=== PATIENT | male | born 1965 | race Caucasian/White ===

== ENCOUNTER 2020-09-12 09:28 | Outpatient (REF) | payer BC, SELFPAY | END 2020-09-12 09:29 | disposition home or self-care (01) | LOC: HO.LAB 09:28 | PROVIDERS: Visit Provider Internal Medicine | DX: Z20.828 Contact with and (suspected) exposure to other viral communicable diseases (principal) | CPT/HCPCS: U0003 ==

== ENCOUNTER 2023-02-25 06:04 | Outpatient (REF) | payer BC, SELFPAY ==
[2023-02-25 11:04] LABS: Appearance Urine Clear; Color Urine Yellow; Glucose Urine UA Negative (Negative); Leukocyte Esterase Urine Negative (Negative); Nitrite Urine Negative (Negative); Urine Blood Negative (Negative); Urine Ketones Negative (Negative); Urine Protein Negative (Neg-Trace)
[2023-02-25 11:07] LABS: MANUAL DIFF FLAG NO
[2023-02-25 11:41] LABS: Basophils Percent Auto 0.3 % (0-2); Eosinophils Absolute Auto 0.2 X10*3/uL (0.0-0.4); Eosinophils Percent Auto 1.5 % (0-4); Hematocrit 44.7 % (42.0-52.0); Hemoglobin 15.1 g/dl (14.0-18.0); Imm Gran Abs Auto 0.04 X10*3/uL (0.00-0.03); Imm Gran Pct Auto 0.4 % (0.0-0.4); Lymphocytes Percent Auto 29.5 % (20-40); Mean Corpuscular HGB Conc 33.8 g/dl (31.0-36.0); Mean Corpuscular Hemoglobin 32.5 pg (27.0-33.0); Mean Corpuscular Volume 96.1 fL (80.0-98.0); Mean Platelet Volume 9.9 fL (9.4-12.4); Monocytes Absolute Auto 0.8 X10*3/uL (0.1-1.2); Monocytes Percent Auto 7.6 % (2-11); Neutrophils Absolute Auto 6.2 x10*3/uL (2.0-8.3); Neutrophils Percent Auto 60.7 % (45-73); Platelet Count 282 X10*3/uL (160-400); Red Blood Count 4.65 X10*6/uL (4.60-5.80); Red Cell Distribution Width 12.1 % (11.0-16.0); White Blood Count 10.2 X10*3/uL (4.8-10.8)
[2023-02-25 11:57] LABS: Alanine Aminotransferase 27 U/L (0-40); Albumin Level 4.5 g/dL (3.5-5.0); Alkaline Phosphatase 72 U/L (39-117); Anion Gap 11 (12-20); Aspartate Amino Transferase 21 U/L (5-37); Bilirubin Total 0.7 mg/dL (0.0-1.0); Blood Urea Nitrogen 14 mg/dL (9-16); Calcium 9.6 mg/dL (8.4-10.2); Carbon Dioxide 28 mmol/L (22-29); Chloride 106 mmol/L (96-108); Cholesterol 122 mg/dL; Estimated Glomerular Filt Rate > 60; Glucose Fasting 162 mg/dL (60-99); HDL Cholesterol 42 mg/dL; LDL Cholesterol Calculated 62 mg/dl; Potassium 4.8 mmol/L (3.3-5.1); Sodium 140 mmol/L (135-145); Total Protein 6.6 g/dL (6.5-8.0); Triglycerides 91 mg/dL
[2023-02-25 12:11] LABS: Estimated Average Glucose 148 mg/dL; Hemoglobin A1c % 6.8 %
[2023-02-25 12:16] LABS: Prostate Specific Antigen Scr 0.14 ng/mL (<0.05-4.0); TSH reflex Free T4 2.47 uIU/mL (0.32-4.0)
[2023-02-25 12:20] LABS: Creatinine Urine 130.56 mg/dL; Microalbum/Creatinine Ratio Ur 7.6 ug/mg cr
== END 2023-02-25 06:05 | disposition home or self-care (01) ==
LOC: HO.HMGCLDS 06:04
PROVIDERS: PCP Nurse Practitioner Family; Visit Provider Nurse Practitioner Family
DX: Z00.00 Encounter for general adult medical examination without abnormal findings (principal); Z12.5 Encounter for screening for malignant neoplasm of prostate; E11.9 Type 2 diabetes mellitus without complications
CPT/HCPCS: 36415; 80053; 80061; 81003; 82043; 83036; 84153; 84443; 85025

== ENCOUNTER 2023-03-17 13:35 | Outpatient (REF) | payer BC, SELFPAY ==
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
== END 2023-03-17 13:36 | disposition home or self-care (01) ==
LOC: HO.HMGCX 13:35
PROVIDERS: PCP Nurse Practitioner Family; Visit Provider Physician Assistant
DX: R07.81 Pleurodynia (principal)
CPT/HCPCS: 71101

== ENCOUNTER 2023-04-25 15:14 | Outpatient (REF) | payer BC, SELFPAY ==
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
== END 2023-04-25 15:15 | disposition home or self-care (01) ==
LOC: HO.CT 15:14
PROVIDERS: PCP Nurse Practitioner Family; Visit Provider Physician Assistant Medical
DX: Z12.2 Encounter for screening for malignant neoplasm of respiratory organs (principal); F17.210 Nicotine dependence, cigarettes, uncomplicated
CPT/HCPCS: 71271; G0296

== ENCOUNTER 2023-05-04 14:51 | Emergency (ER) | payer BC, SELFPAY ==
--- NOTE | ~2023-05-04 | XR_ITS ---
EXAMINATION: XR SHOULDER, LEFT CLINICAL INFORMATION: Decreased range of motion COMPARISON: None available. TECHNIQUE: AP external rotation, Grashey, scapular Y, and axillary views of the left shoulder. FINDINGS: No evidence for an acute fracture or dislocation. There is a foreign body on several films measuring 3 mm. Rounded. Another foreign body overlying C6 and lower cervical region on the right. There is degenerative change at the AC joint and mild acromial spurring. Sclerotic change at the insertion of the superior rotator cuff. There is no acute fracture or dislocation. Mild degenerative change in the inferior glenohumeral articulation. XR/XR shoulder LT min 2V IMPRESSION: Degenerative changes here and findings which may preclude to impingement. Radiopaque foreign bodies are noted.
[2023-05-04 16:55] VITALS: BP 138/87; PULSE 79; RESP 18; TEMP 36.2; O2SAT 98; BMI 30.5
--- NOTE | 2023-05-04 16:55 | ED_ITS ---
HPI - Extremity Problem General Chief complaint: Back Pain/Injury Stated complaint: shoulder and arm pain/numbness Time Seen by Provider: 05/04/23 17:44 History of Present Illness HPI Narrative: patient complains of 2 days of pain radiating from his neck and upper back on left side down his arm with a tingling sensation, there was no injury, there is no loss of sensation there is no muscle weakness, no fever, no rash, no chest pain no shortness of breath, no change to bowel or bladder no dysuria no incontinence no frequency Related Data Previous Rx's Medication Instructions Recorded aspirin 81 mg tablet,delayed 162 mg PO DAILY #90 tabs 02/11/23 release (Adult Aspirin Regimen) atorvastatin 80 mg tablet 80 mg PO DAILY 90 days #90 tabs 02/11/23 lisinopril 2.5 mg tablet 2.5 mg PO DAILY 90 days #90 tabs 02/11/23 metformin 1,000 mg tablet 1,000 mg PO BID 90 days #180 tabs 02/11/23 metoprolol succinate 50 mg 50 mg PO DAILY 90 days #90 tabs 02/11/23 tablet,extended release 24 hr ketorolac 10 mg tablet 10 mg PO Q8H PRN pain #15 tabs 03/17/23 lidocaine 4 % topical patch 1 patch topical DAILY PRN pain #15 03/17/23 (AsperFlex (lidocaine)) ea cyclobenzaprine 5 mg tablet 5 mg PO TID PRN muscle spasm #14 05/04/23 tabs oxycodone 5 mg tablet 5 mg PO Q6H PRN pain #14 tabs 05/04/23 prednisone 20 mg tablet 60 mg PO DAILY 3 days #9 tabs 05/04/23 Allergies Allergy/AdvReac Type Severity Reaction Status Date / Time No Known Allergies Allergy Unverified 03/17/23 12:48 [No Known Allergies*] [facility] Past Medical History Source: nursing notes reviewed Medical History (Updated 05/06/23 @ 18:11 by HAI Cullen) Blindness of left eye (~1999) CAD (coronary artery disease) Diabetes Hyperlipidemia Hypertension Metal foreign body in eye region (~1999) Nicotine dependence, cigarettes, uncomplicated Surgical History (Updated 04/25/23 @ 15:11 by Maria Isabel Wetzel PA-C) History of heart artery stent Family History Family History (Updated 04/21/23 @ 12:26 by Maria Isabel Wetzel PA-C) Father Esophageal cancer Social History Social History (Updated 04/25/23 @ 15:00 by Maria Isabel Wetzel PA-C) Housing: House Patient Tobacco Use Status: Current everyday Tobacco user Cigarette Packs Per Day: 0.75 Cigarettes Per Day: 15 Years Smoked: (current smoker, onset 16yo, 1ppd x 41yrs, 40pyh) e-Cigarette/Vaping Use: Never Used Second Hand Smoke Exposure: Yes Advance Directives: No Advance Directives Information Provided: No service: No Current occupational status: employed Current occupation: [employer] Current occupational exposures/hazards: Yes Cognitive needs: No Hearing needs: No Vision needs: No Physical Exam Vital Signs: Vital Signs: Last Vital Signs Temp 98 F 05/04/23 19:34 Pulse 68 05/04/23 19:34 Resp 16 05/04/23 19:34 BP 130/65 05/04/23 19:34 Pulse Ox 100 05/04/23 19:34 O2 Del Method Room Air 05/04/23 19:34 BMI result Body Mass Index 30.5 general appearance no distress The head is normocephalic atraumatic The neck is supple with no meningismus but there is discomfort on lateral motion, there is tenderness to the left side of the neck the left trapezius as well, skin of the neck and trapezius are normal Chest wall is nontender there is no rash Lungs are clear to auscultation bilateral Heart no murmur Abdomen soft nontender Extremities there is some tenderness over the left shoulder but most of it is left trapezius and left upper back, skin of left subscapular area Pain is easily reproduced with movement, there is no lumbar tenderness no focal bony tenderness no skin changes to the back Extremities the left shoulder had some tenderness and there was pain with movement of the left arm on extension abduction and external rotation, no redness no swelling, neurovascular intact distal with normal pulse distal, 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 Patient is a 57-year-old male presented to emergency department for evaluation of shoulder pain. Awoke yesterday with a knot in my left shoulder . Pain is progressively worsening, radiates to the left lateral neck. Also experiencing numbness to the left hand now. 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 Denies chest pain, shortness of breath, dizziness. lightheadedness. Plan: XR shoulder patient with pain radiating likely from pinched nerve in the neck possibly from the upper back radiating into the left arm with a tingling burning sensation but no muscle weakness, no loss of sensation, he had no injury Pain is easily reproducible with movement and palpation of the neck and upper back He is treated with prednisone analgesics and muscle relaxer and will follow with his doctor Medications Administered Discontinued Medications Generic Name Dose Route Start Last Admin Trade Name Freq PRN Reason Stop Dose Admin Ketorolac Tromethamine 30 mg 05/04/23 19:10 05/04/23 19:29 Ketorolac Tromethamine 30 Mg/Ml Vial IM 05/04/23 19:11 30 mg ONCE ONE Administration Oxycodone HCl 10 mg 05/04/23 19:10 05/04/23 19:29 Oxycodone Hcl Immed Release 5 Mg Tablet PO 05/04/23 19:11 10 mg ONCE ONE Administration Prednisone 60 mg 05/04/23 19:10 05/04/23 19:29 Prednisone 20 Mg Tablet PO 05/04/23 19:11 60 mg ONCE ONE Administration Discharge Plan Discharge Clinical Impression: Cervical radiculopathy Patient Disposition: Home, Self-Care Additional Instructions: you likely have a pinched nerve in your neck or upper back that is shooting pain and tingling down arm Prednisone will sometimes reduce inflammation around the nerve and help this feel better Use pain medicine and muscle relaxer as needed but if you are driving or going to work you cannot take muscle relaxer or oxycodone for 6 hours before going to work increasin Return any time for weakness fever, severe pain, any worse condition or any concern Follow with primary doctor for possible referral to specialist for further evaluation if pain does not resolve Prescriptions: New prednisone 20 mg tablet 60 mg PO DAILY 3 Days Qty: 9 0RF oxycodone 5 mg tablet 5 mg PO Q6H PRN (Reason: pain) Qty: 14 0RF Rx Instructions: Partial Fill upon patient request. cyclobenzaprine 5 mg tablet 5 mg PO TID PRN (Reason: muscle spasm) Qty: 14 0RF No Action lisinopril 2.5 mg tablet 2.5 mg PO DAILY 90 Days Qty: 90 0RF aspirin [Adult Aspirin Regimen] 81 mg tablet,delayed release (DR/EC) 162 mg PO DAILY Qty: 90 0RF atorvastatin 80 mg tablet 80 mg PO DAILY 90 Days Qty: 90 2RF metformin 1,000 mg tablet 1,000 mg PO BID 90 Days Qty: 180 1RF metoprolol succinate 50 mg tablet extended release 24 hr 50 mg PO DAILY 90 Days Qty: 90 1RF lidocaine [AsperFlex (lidocaine)] 4 % adhesive patch,medicated 1 patch topical DAILY PRN (Reason: pain) Qty: 15 0RF ketorolac 10 mg tablet 10 mg PO Q8H PRN (Reason: pain) Qty: 15 0RF Interventions: ED Discharge Assessment Last Done: 05/04/23 19:38 Discharge Date/Time: 05/04/23 19:38
[2023-05-04] MEDS: Ketorolac Tromethamine 30 MG/ML VIAL IM (19:29)
[2023-05-04] MEDS: predniSONE 20 MG TABLET 60 MG PO (19:29)
[2023-05-04] MEDS: oxyCODONE HCl Immed Release 5 MG TABLET 10 MG PO (19:29)
[2023-05-04 19:34] VITALS: BP 130/65; PULSE 68; RESP 16; TEMP 36.6; O2SAT 100
--- NOTE | 2023-05-04 19:36 | PC.NURSE ---
aox4. calm, coop. vss for pt. no respiratory distress. reports continued left arm/elbow pain with continued mild to moderate numbness/tingling to left arm. positive motion/circulation. denies neck pain at this time. rx for toradol im- tolerated well- skin cdi. po pain med and steroid given. walked well w to [facility]- pt not driving home, family driving him
== END 2023-05-04 19:38 | disposition home or self-care (01) ==
PROVIDERS: Emergency Provider Internal Medicine; PCP Nurse Practitioner Family
DX: M54.12 Radiculopathy, cervical region (principal); M54.2 Cervicalgia; M54.50 Low back pain, unspecified; M25.512 Pain in left shoulder; F17.210 Nicotine dependence, cigarettes, uncomplicated; Z71.6 Tobacco abuse counseling; Z79.899 Other long term (current) drug therapy
CPT/HCPCS: 73030; 96372; 99284; J1885

== ENCOUNTER 2023-05-14 15:51 | Outpatient (REF) | payer BC, SELFPAY ==
--- NOTE | ~2023-05-14 | XR_ITS ---
EXAMINATION: XR CERVICAL SPINE CLINICAL INFORMATION: Cervical disc disorder COMPARISON: None available. TECHNIQUE: 3 views of the cervical spine were obtained. FINDINGS: The craniocervical junction is normal. The dens is intact. The cervical vertebra have well preserved height and alignment. No vertebral compression fracture or prevertebral soft tissue swelling. There is anterior vertebral osteophyte formation at C5-C6, C6-C7 and C7-T1. The disc space is preserved at C5-C6. There is moderate narrowing of disc space at C6-C7 and C7-T1. There appears to be mild facet arthropathy of C5-C6 and moderate facet arthropathy at C7-T1. Lung apices are normal. Several metallic BBs project over the soft tissues of the face and neck. XR/XR cervical spine 3V IMPRESSION: * There appears to be facet arthropathy as well as moderate discovertebral degenerative change of C5-C6 and C6-C7. * The alignment of the cervical vertebra is maintained. No acute fracture or soft tissue swelling.
== END 2023-05-14 15:52 | disposition home or self-care (01) ==
LOC: HO.HMGCX 15:51
PROVIDERS: PCP Nurse Practitioner Family; Visit Provider Nurse Practitioner Family
DX: M50.90 Cervical disc disorder, unspecified, unspecified cervical region (principal)
CPT/HCPCS: 72040

== ENCOUNTER 2023-05-20 13:54 | Outpatient (AMB) | payer BC, SELFPAY ==
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
[2023-05-20 14:10] VITALS: BP 113/61; PULSE 97; BMI 30.2
== END 2023-05-20 14:33 | disposition home or self-care (01) ==
PROVIDERS: PCP Nurse Practitioner Family; Visit Provider Nurse Practitioner Family
DX: Z01.818 Encounter for other preprocedural examination (principal); Z12.11 Encounter for screening for malignant neoplasm of colon
CPT/HCPCS: S0285

== ENCOUNTER → 2023-05-20 13:54 | Outpatient (BNVA) | payer BC, SELFPAY | PROVIDERS: PCP Nurse Practitioner Family; Visit Provider Nurse Practitioner Family ==

== ENCOUNTER 2023-06-18 07:36 | Outpatient (REF) | payer BC, SELFPAY ==
--- NOTE | ~2023-06-18 | CT_ITS ---
EXAMINATION: CT CERVICAL SPINE WITHOUT CONTRAST CLINICAL INFORMATION: Abnormal findings on diagnostic imaging. COMPARISON: None TECHNIQUE: CT of the cervical spine was performed without contrast. Multiplanar reformats were rendered and reviewed. This CT examination was performed using dose optimization techniques as appropriate, variously including the following: *Automated exposure control *Adjustment of mA and/or kV according to patient size (this includes techniques or standardized protocols for targeted exams where dose is matched to indication/reason for exam; i.e. extremities or head) *Use of iterative reconstruction technique DLP: 497 mGy-cm FINDINGS: The cervical vertebral bodies maintain normal heights and alignment. There is advanced disc height loss at C6-C7 and C7-T1. Prominent anterior endplate osteophytes are seen from C5 to T1. No fracture is seen. Imaged intracranial contents are unremarkable. There are bilateral palatine tonsilloliths. Atheromatous calcifications are seen at the carotid bifurcations. The lung apices are clear. Numerous BBs are seen within the chest and neck soft tissues. SPINAL LEVELS: C2-C3: No posterior disc abnormality. No spinal canal or neural foraminal stenosis. C3-C4: Mild disc bulging. No spinal canal stenosis. Mild right uncovertebral hypertrophy resulting in mild right neural foraminal stenosis. C4-C5: No posterior disc abnormality. No spinal canal or neural foraminal stenosis. C5-C6: Disc bulging with uncovertebral hypertrophy resulting in mild to moderate left neural foraminal stenosis. No spinal canal stenosis. C6-C7: Disc osteophyte complex with uncovertebral hypertrophy resulting in moderate bilateral neural foraminal stenosis. Mild spinal canal stenosis. Ossification of posterior longitudinal ligament seen along the posterior aspect of C6. C7-T1: Disc osteophyte complex with uncovertebral hypertrophy and mild facet arthropathy. No spinal canal stenosis. Mild bilateral neural foraminal stenosis. Ossification of posterior longitudinal ligament seen along the posterior aspect of C7. CT/CT cervical spine wo IV con IMPRESSION: Multilevel degenerative spondylotic changes without significant narrowing of the spinal canal. Neural foraminal stenosis appears moderate bilaterally at C6-C7 and mild to moderate on the left at C5-C6.
== END 2023-06-18 07:37 | disposition home or self-care (01) ==
LOC: HO.CT 07:36
PROVIDERS: Visit Provider Nurse Practitioner Family
DX: M50.90 Cervical disc disorder, unspecified, unspecified cervical region (principal); R93.7 Abnormal findings on diagnostic imaging of other parts of musculoskeletal system
CPT/HCPCS: 72125

== ENCOUNTER 2023-06-26 08:40 | Outpatient (REF) | payer BC, SELFPAY ==
--- NOTE | 2023-06-26 08:44 | EMG_ITS ---
Left median and ulnar motor and sensory studies were performed. Left radial sensory study was performed. Median and lateral antecubital sensory studies were performed and paraspinal muscles were tested with a needle. IMPRESSION: 1. [id number] left median neuropathy across carpal tunnel. 2. [id number] left ulnar neuropathy across cubital tunnel. MD MAYNOR Reynolds/ANDREW / [id number]
== END 2023-06-26 08:41 | disposition home or self-care (01) ==
LOC: HO.NEURO 08:40
PROVIDERS: PCP Nurse Practitioner Family; Visit Provider Nurse Practitioner Family
DX: R20.0 Anesthesia of skin (principal)
CPT/HCPCS: 95860; 95886; 95907; 95910

== ENCOUNTER 2023-08-11 06:04 | Outpatient (REF) | payer BC, SELFPAY ==
[2023-08-11 11:18] LABS: MANUAL DIFF FLAG NO
[2023-08-11 11:51] LABS: Basophils Percent Auto 0.2 % (0-2); Eosinophils Absolute Auto 0.1 X10*3/uL (0.0-0.4); Eosinophils Percent Auto 1.3 % (0-4); Hematocrit 46.9 % (42.0-52.0); Hemoglobin 15.7 g/dl (14.0-18.0); Imm Gran Abs Auto 0.03 X10*3/uL (0.00-0.03); Imm Gran Pct Auto 0.3 % (0.0-0.4); Lymphocytes Percent Auto 26.8 % (20-40); Mean Corpuscular HGB Conc 33.5 g/dl (31.0-36.0); Mean Corpuscular Volume 95.5 fL (80.0-98.0); Mean Platelet Volume 9.6 fL (9.4-12.4); Monocytes Absolute Auto 0.8 X10*3/uL (0.1-1.2); Monocytes Percent Auto 6.9 % (2-11); Neutrophils Absolute Auto 7.2 x10*3/uL (2.0-8.3); Neutrophils Percent Auto 64.5 % (45-73); Platelet Count 271 X10*3/uL (160-400); Red Blood Count 4.91 X10*6/uL (4.60-5.80); Red Cell Distribution Width 12.2 % (11.0-16.0); White Blood Count 11.2 X10*3/uL (4.8-10.8)
[2023-08-11 12:18] LABS: Alanine Aminotransferase 29 U/L (0-40); Albumin Level 4.4 g/dL (3.5-5.0); Alkaline Phosphatase 71 U/L (39-117); Anion Gap 14 (12-20); Aspartate Amino Transferase 27 U/L (5-37); Bilirubin Total 0.6 mg/dL (0.0-1.0); Blood Urea Nitrogen 12 mg/dL (9-16); Calcium 9.5 mg/dL (8.4-10.2); Carbon Dioxide 23 mmol/L (22-29); Chloride 106 mmol/L (96-108); Cholesterol 123 mg/dL (<200); Estimated Glomerular Filt Rate > 60; Glucose Fasting 164 mg/dL (60-99); HDL Cholesterol 51 mg/dL (>40); LDL Cholesterol Calculated 56 mg/dL (<100); Potassium 3.8 mmol/L (3.3-5.1); Sodium 139 mmol/L (135-145); Total Protein 6.9 g/dL (6.5-8.0); Triglycerides 81 mg/dL (<150)
== END 2023-08-11 06:05 | disposition home or self-care (01) ==
LOC: HO.HMGCLDS 06:04
PROVIDERS: PCP Nurse Practitioner Family; Visit Provider Nurse Practitioner Family
DX: E11.9 Type 2 diabetes mellitus without complications (principal)
CPT/HCPCS: 36415; 80053; 80061; 85025

== ENCOUNTER 2023-08-12 15:38 | Outpatient (AMB) | payer BC, SELFPAY ==
--- NOTE | 2023-08-12 15:43 | MHC.PC.OV ---
Vital Signs 08/12/23 15:44 Height 5 ft 7 in Weight 188 lb 6 oz BMI 29.5 BP 110/70 Blood Pressure Location Rt brachial Position Sitting Pulse 88 Pulse Source Pulse Oximeter Pulse Oximetry (%) 96 Oxygen Delivery Method Room Air Intake Visit Reasons: 3m follow up Allergies No Known Allergies [No Known Allergies*] Allergy (Verified 08/12/23 18:01) Medication List - Last Reconciled 08/12/23 by AD Cullen aspirin (Adult Aspirin Regimen) 162 mg (2 x 81 mg) PO DAILY atorvastatin 80 mg PO DAILY 90 days bisacodyl (Dulcolax (bisacodyl)) 10 mg (2 x 5 mg) PO ONCE 1 day blood sugar diagnostic (Freestyle [employer] Test Strips) TID testing empagliflozin (Jardiance) 10 mg PO DAILY lancets (FreeStyle Lancets) TID testing lisinopril 2.5 mg PO DAILY 90 days metformin 1,000 mg PO BID 90 days metoprolol succinate ER 50 mg PO DAILY 90 days polyethylene glycol 3350 (Miralax) 238 grams PO ONCE Tobacco use date assessed: 08/12/23 HPI 3m follow up HPI Details Pt is a diabetic, on an CONSTANZA and a statin. A1C in office today is 7.0. Microalbumin is up to date. Denies polyuria, polydipsia, and neuropathy. Pt denies any signs and symptoms of hypoglycemia and does know how to correct it. Will increase jardiance from 10mg to 25mg. Leukocytosis noted on last labs. Pt denies any signs of infection. Will repeat CBC. Will refer to podiatry due to onychomycosis. [facility] Medical History (Updated 08/12/23 @ 18:03 by AD Cullen) Blindness of left eye (~1999) Hyperlipidemia Hypertension Metal foreign body in eye region (~1999) CAD (coronary artery disease) Nicotine dependence, cigarettes, uncomplicated Diabetes Surgical History History of heart artery stent Family History Father Esophageal cancer Social History Housing: House Patient Tobacco Use Status: Current everyday Tobacco user Cigarette Packs Per Day: 0.75 Cigarettes Per Day: 15 Years Smoked: (current smoker, onset 16yo, 1ppd x 41yrs, 40pyh) e-Cigarette/Vaping Use: Never Used Second Hand Smoke Exposure: Yes service: No Current occupational status: employed Current occupation: [employer] Current occupational exposures/hazards: Yes Cognitive needs: No Hearing needs: No Vision needs: No Questionnaire Thrive Questionnaire Date Thrive assessed: 02/11/23 SUMAYA-7 AMB Questionnaire SUMAYA-7 Date SUMAYA - 7 assessed: 02/11/23 Source: Developed by Drs. Derick Nicole, Jessica Jacques, Monroe Fleming and colleagues, with an educational renae from [employer]. Review of Systems Const Reports as per HPI Physical exam (Primary Care) Vital Signs: Last Vital Signs Pulse 88 08/12/23 15:44 BP 110/70 08/12/23 15:44 Pulse Ox 96 08/12/23 15:44 Oxygen Delivery Method Room Air 08/12/23 15:44 BMI result Body Mass Index 29.5 Tobacco/Smoking Status: Tobacco use Status Tobacco use date assessed 08/12/23 08/12/23 15:47 Patient Tobacco Use Status Current everyday Tobacco 08/12/23 15:47 e-Cigarette/Vaping Use Never Used 08/12/23 15:47 Thrive Assessment: Date of Thrive Assessment Date Thrive assessed 02/11/23 08/12/23 15:47 Const General: cooperative Orientation/consciousness: patient oriented x3 Resp Effort & Inspection: normal respiratory effort Auscultation: clear to auscultation bilaterally Cardio Rate: regular rate Rhythm: regular rhythm Heart sounds: S1 normal heart sound present, S2 normal heart sound present and no murmurs Neuro General: patient oriented x3 Extrem Other: bilat feet: + sensation with use of monofilament, onychomycosis noted bilat, right big toenail is worse, lifting off nail bed Psych Appearance: grossly normal Mental Status: mental status grossly normal Speech and movement: Normal speech and movement present Affect: normal affect Attitude: cooperative Thought process: Normal thought process present Thought content: Normal thought content present Insight: Good insight present (Psych) Judgement: Good judgement present (Psych) Results AMB Hemoglobin A1c AMB Hemoglobin A1c 7.0 % Last Edit by Julianne Reyna CMA on 08/12/23 16:17 Results Reviewed Results Reviewed: Laboratory Last Values Hgb A1c (Clinic) 7.0 % (4.0-6.0) H 08/12/23 16:15 Assessment and Plan Assessment & Plan (1) Leukocytosis: Code(s): D72.829 - Elevated white blood cell count, unspecified Plan: CBC ordered (2) Onychomycosis: Code(s): B35.1 - Tinea unguium Plan: Referred to podiatry (3) Diabetes: Code(s): E11.9 - Type 2 diabetes mellitus without complications Plan: increased jardiance Plan The patient agreed to the use of a pediatrician/medical doctor for this encounter. Scribed for AD Peterson by Michell Saenz pediatrician/medical doctor, on 08/12/2023 at 15:50 EST Orders: Orders Complete Blood Count Auto Diff Today D72.829 - Elevated white blood cell count, unspecified AMB Hemoglobin A1c Today E11.9 - Type 2 diabetes mellitus without complications Referrals Podiatry Referral B35.1 - Tinea unguium Medications: Changed From empagliflozin (Jardiance) 10 mg PO DAILY 30 tabs 4RF To empagliflozin 25 mg PO DAILY 90 tabs 4RF 90 days Coding Level of Care Code Est Pt Level 3 (00358) Diagnoses Leukocytosis D72.829 Onychomycosis B35.1 Diabetes E11.9
[2023-08-12 15:44] VITALS: BP 110/70; PULSE 88; O2SAT 96; BMI 29.5
== END 2023-08-12 16:46 | disposition home or self-care (01) ==
PROVIDERS: PCP Nurse Practitioner Family; Visit Provider Nurse Practitioner Family
DX: D72.829 Elevated white blood cell count, unspecified (principal); B35.1 Tinea unguium; E11.9 Type 2 diabetes mellitus without complications
CPT/HCPCS: 83036; 99213

== ENCOUNTER 2023-08-14 06:02 | Outpatient (REF) | payer BC, SELFPAY ==
[2023-08-14 11:00] LABS: MANUAL DIFF FLAG NO
[2023-08-14 11:14] LABS: Basophils Percent Auto 0.2 % (0-2); Eosinophils Absolute Auto 0.1 X10*3/uL (0.0-0.4); Hematocrit 46.4 % (42.0-52.0); Hemoglobin 15.2 g/dl (14.0-18.0); Imm Gran Abs Auto 0.02 X10*3/uL (0.00-0.03); Imm Gran Pct Auto 0.2 % (0.0-0.4); Lymphocytes Absolute Auto 2.7 X10*3/uL (1.2-4.9); Lymphocytes Percent Auto 26.1 % (20-40); Mean Corpuscular HGB Conc 32.8 g/dl (31.0-36.0); Mean Corpuscular Hemoglobin 31.6 pg (27.0-33.0); Mean Corpuscular Volume 96.5 fL (80.0-98.0); Monocytes Absolute Auto 0.8 X10*3/uL (0.1-1.2); Monocytes Percent Auto 7.3 % (2-11); Neutrophils Absolute Auto 6.8 x10*3/uL (2.0-8.3); Neutrophils Percent Auto 65.2 % (45-73); Platelet Count 270 X10*3/uL (160-400); Red Blood Count 4.81 X10*6/uL (4.60-5.80); Red Cell Distribution Width 12.2 % (11.0-16.0); White Blood Count 10.5 X10*3/uL (4.8-10.8)
== END 2023-08-14 06:03 | disposition home or self-care (01) ==
LOC: HO.HMGCLDS 06:02
PROVIDERS: PCP Nurse Practitioner Family; Visit Provider Nurse Practitioner Family
DX: D72.829 Elevated white blood cell count, unspecified (principal)
CPT/HCPCS: 36415; 85025

== ENCOUNTER 2023-11-24 14:50 | Outpatient (AMB) | payer BC, SELFPAY ==
--- NOTE | 2023-11-24 14:59 | MHC.PC.OV ---
Vital Signs 11/24/23 15:02 Weight 193 lb 6 oz BP 118/80 Blood Pressure Location Rt brachial Position Sitting Pulse 88 Pulse Source Pulse Oximeter Pulse Oximetry (%) 97 Oxygen Delivery Method Room Air Intake Visit Reasons: Diabetes 3m Follow up Intake Note: Patient here for diabetes F/U. Pt states sugars have been good. Allergies No Known Allergies [No Known Allergies*] Allergy (Verified 11/24/23 15:03) Medication List - Last Reconciled 11/24/23 by AD Cullen aspirin (Adult Aspirin Regimen) 162 mg (2 x 81 mg) PO DAILY atorvastatin 80 mg PO DAILY 90 days bisacodyl (Dulcolax (bisacodyl)) 10 mg (2 x 5 mg) PO ONCE 1 day blood sugar diagnostic (Freestyle [employer] Test Strips) TID testing empagliflozin 25 mg PO DAILY 90 days lancets (FreeStyle Lancets) TID testing lisinopril 2.5 mg PO DAILY 90 days metformin 1,000 mg PO BID 90 days metoprolol succinate ER 50 mg PO DAILY 90 days polyethylene glycol 3350 (Miralax) 238 grams PO ONCE Tobacco use date assessed: 11/24/23 Dental Screening Dental Screen Date: 11/24/23 Was dental information given to patient?: Patient declined HPI Diabetes 3m Follow up HPI Details Pt is a diabetic, on an CONSTANZA and a statin. A1C in office today is 6.6. Microalbumin is up to date. Denies polyuria, polydipsia, and neuropathy. Pt denies any signs and symptoms of hypoglycemia and does know how to correct it. Pt check his blood sugar twice a day and reports that it is well-controlled. Pt reports he has a eye exam in the near future. [facility] Medical History Blindness of left eye (~1999) Hyperlipidemia Hypertension Metal foreign body in eye region (~1999) CAD (coronary artery disease) Nicotine dependence, cigarettes, uncomplicated Diabetes Surgical History History of heart artery stent Family History Father Esophageal cancer Social History (Reviewed 01/15/24 @ 15:20 by Richard Campuzano [facility]) Housing: House Patient Tobacco Use Status: Current everyday Tobacco user Cigarette Packs Per Day: 0.75 Cigarettes Per Day: 15 Years Smoked: (current smoker, onset 16yo, 1ppd x 41yrs, 40pyh) e-Cigarette/Vaping Use: Never Used Second Hand Smoke Exposure: Yes service: No Current occupational status: employed Current occupation: [employer] Current occupational exposures/hazards: Yes Cognitive needs: No Hearing needs: No Vision needs: No Questionnaire Thrive Questionnaire Date Thrive assessed: 02/11/23 AUDIT C Alcohol Use Questionnaire (AUDIT-C) 1. How often do you have a drink containing alcohol?: 2-4 times a month 2. How many drinks containing alcohol do you have on a typical day when you are drinking?: 3 or 4 3. How often do you have six or more drinks on one occasion?: Less than monthly Total Score: 4 SUMAYA-7 AMB Questionnaire SUMAYA-7 Date SUMAYA - 7 assessed: 02/11/23 Source: Developed by Drs. Derick Nicole, Jessica Jacques, Monroe Fleming and colleagues, with an educational renae from [employer]. Review of Systems Const Reports as per HPI Physical exam (Primary Care) Vital Signs: Last Vital Signs Pulse 88 11/24/23 15:02 BP 118/80 11/24/23 15:02 Pulse Ox 97 11/24/23 15:02 Oxygen Delivery Method Room Air 11/24/23 15:02 Tobacco/Smoking Status: Tobacco use Status Tobacco use date assessed 11/24/23 11/24/23 15:09 Patient Tobacco Use Status Current everyday Tobacco 11/24/23 15:01 e-Cigarette/Vaping Use Never Used 11/24/23 15:01 Thrive Assessment: Date of Thrive Assessment Date Thrive assessed 02/11/23 11/24/23 15:01 Const General: cooperative Orientation/consciousness: patient oriented x3 Chest Chest palpation & inspection: normal inspection of the chest Resp Effort & Inspection: normal respiratory effort Auscultation: clear to auscultation bilaterally Cardio Palpation: normal PMI Rate: regular rate Rhythm: regular rhythm Heart sounds: S1 normal heart sound present and S2 normal heart sound present Neuro General: patient oriented x3 Extrem Other: bilat feet: + sensation with use of monofilament, onychomycosis noted to bilat toenails Psych Appearance: grossly normal Mental Status: mental status grossly normal Speech and movement: Normal speech and movement present Affect: normal affect Attitude: cooperative Thought process: Normal thought process present Thought content: Normal thought content present Insight: Good insight present (Psych) Judgement: Good judgement present (Psych) Results AMB Hemoglobin A1c AMB Hemoglobin A1c 6.6 % Last Edit by THONG Perez on 11/24/23 15:27 Assessment and Plan Assessment & Plan (1) Diabetes: Code(s): E11.9 - Type 2 diabetes mellitus without complications Plan: Labs ordered, cont same meds Plan The patient agreed to the use of a remote medical coder for this encounter. Scribed for AD Peterson by Michell Saenz remote medical coder, on 11/24/2023 at 15:15 EST. Orders: Orders Comprehensive [place]. Panel Fast Today E11.9 - Type 2 diabetes mellitus without complications Lipid Panel Today E11.9 - Type 2 diabetes mellitus without complications AMB Hemoglobin A1c Today E11.9 - Type 2 diabetes mellitus without complications Complete Blood Count Auto Diff Today E11.9 - Type 2 diabetes mellitus without complications TSH reflex Free T4 Today E11.9 - Type 2 diabetes mellitus without complications UA CC w/rflx Micro + Cult Today E11.9 - Type 2 diabetes mellitus without complications Coding Level of Care Code Est Pt Level 3 (81210) Diagnoses Diabetes E11.9
[2023-11-24 15:02] VITALS: BP 118/80; PULSE 88; O2SAT 97
== END 2023-11-24 15:42 | disposition home or self-care (01) ==
PROVIDERS: PCP Nurse Practitioner Family; Visit Provider Nurse Practitioner Family
DX: E11.9 Type 2 diabetes mellitus without complications (principal); Z23 Encounter for immunization
CPT/HCPCS: 83036; 90471; 90677; 99213

== ENCOUNTER 2024-03-01 06:02 | Outpatient (REF) | payer BC, SELFPAY ==
[2024-03-01 10:24] LABS: MANUAL DIFF FLAG NO
[2024-03-01 10:38] LABS: Appearance Urine Clear; Basophils Percent Auto 0.2 % (0-2); Color Urine Yellow; Eosinophils Absolute Auto 0.1 X10*3/uL (0.0-0.4); Glucose Urine UA >=1000 mg/dL (Negative); Hematocrit 48.3 % (42.0-52.0); Hemoglobin 16.3 g/dl (14.0-18.0); Imm Gran Abs Auto 0.04 X10*3/uL (0.00-0.03); Imm Gran Pct Auto 0.3 % (0.0-0.4); Leukocyte Esterase Urine Negative (Negative); Lymphocytes Absolute Auto 3.4 X10*3/uL (1.2-4.9); Mean Corpuscular HGB Conc 33.7 g/dl (31.0-36.0); Mean Corpuscular Hemoglobin 31.8 pg (27.0-33.0); Mean Corpuscular Volume 94.3 fL (80.0-98.0); Monocytes Absolute Auto 1.1 X10*3/uL (0.1-1.2); Monocytes Percent Auto 9.3 % (2-11); Neutrophils Absolute Auto 7.4 x10*3/uL (2.0-8.3); Neutrophils Percent Auto 61.2 % (45-73); Nitrite Urine Negative (Negative); Platelet Count 282 X10*3/uL (160-400); Red Blood Count 5.12 X10*6/uL (4.60-5.80); Red Cell Distribution Width 12.7 % (11.0-16.0); Specific Gravity - Urine >= 1.030 (1.005-1.025); UMIC TRIGGER UACC YES; Urine Blood Negative (Negative); Urine Ketones Negative (Negative); Urine Protein Negative (Neg-Trace)
[2024-03-01 10:41] LABS: Bacteria Urine None Seen (None Seen); Hyaline Casts Urine 0-2 /LPF (0-2); RBC Urine 0-2 /HPF (0-2); Squamous Epithelial Cell Urine 0-2 /HPF (0-2); WBC Urine 0-5 /HPF (0-5)
[2024-03-01 10:55] LABS: Alanine Aminotransferase 30 U/L (0-40); Albumin Level 4.6 g/dL (3.5-5.0); Alkaline Phosphatase 85 U/L (39-117); Anion Gap 12 (12-20); Aspartate Amino Transferase 24 U/L (5-37); Bilirubin Total 0.6 mg/dL (0.0-1.0); Blood Urea Nitrogen 17 mg/dL (9-16); Calcium 9.9 mg/dL (8.4-10.2); Carbon Dioxide 27 mmol/L (22-29); Chloride 105 mmol/L (96-108); Cholesterol 141 mg/dL (<200); Estimated Glomerular Filt Rate > 60; Glucose Fasting 157 mg/dL (60-99); HDL Cholesterol 53 mg/dL (>40); LDL Cholesterol Calculated 72 mg/dL (<100); Sodium 140 mmol/L (135-145); Total Protein 7.4 g/dL (6.5-8.0); Triglycerides 82 mg/dL (<150)
[2024-03-01 11:14] LABS: TSH reflex Free T4 1.94 uIU/mL (0.32-4.0)
== END 2024-03-01 06:03 | disposition home or self-care (01) ==
LOC: HO.HMGCLDS 06:02
PROVIDERS: PCP Nurse Practitioner Family; Visit Provider Nurse Practitioner Family
DX: E11.9 Type 2 diabetes mellitus without complications (principal)
CPT/HCPCS: 36415; 80053; 80061; 81001; 84443; 85025

== ENCOUNTER 2024-03-03 16:22 | Outpatient (AMB) | payer BC, SELFPAY ==
--- NOTE | 2024-03-03 16:27 | MHC.PC.OV ---
Vital Signs 03/03/24 16:29 Weight 190 lb BP 120/74 Blood Pressure Location Rt brachial Position Sitting Pulse 84 Pulse Source Pulse Oximeter Pulse Oximetry (%) 98 Oxygen Delivery Method Room Air Intake Visit Reasons: Annual PE Intake Note: Patient here for physical exam. pt would like to discuss labs. Colon: has not had an appt yet. Allergies No Known Allergies [No Known Allergies*] Allergy (Verified 03/03/24 17:23) Medication List - Last Reconciled 03/03/24 by AD Cullen aspirin (Adult Aspirin Regimen) 162 mg (2 x 81 mg) PO DAILY atorvastatin 80 mg PO DAILY 90 days bisacodyl (Dulcolax (bisacodyl)) 10 mg (2 x 5 mg) PO ONCE 1 day blood sugar diagnostic (Freestyle [employer] Test Strips) TID testing empagliflozin 25 mg PO DAILY 90 days lancets (FreeStyle Lancets) TID testing lisinopril 2.5 mg PO DAILY 90 days metformin 1,000 mg PO BID 90 days metoprolol succinate ER 50 mg PO DAILY 90 days polyethylene glycol 3350 (Miralax) 238 grams PO ONCE Tobacco use date assessed: 11/24/23 Dental Screening Dental Screen Date: 11/24/23 HPI Annual PE HPI Details Pt is here for a PE. Will order labs. Pt has not heard anything about scheduling his colon screen, will reach out to GI office. Due for PSA, will order. Denies dribbling with urination, weak stream, and frequent nocturia. Pt is a diabetic, on an CONSTANZA and a statin. A1C in office today is 7.1. Due for microalbumin, will order. Denies polyuria, polydipsia, and neuropathy. Pt denies any signs and symptoms of hypoglycemia and does know how to correct it. Pt would like to work on his diet before starting any new meds. Eye exam is up to date. Pt sees a professor of finance. Leukocytosis noted on last labs. Pt does smoke and had a cold 2-3 weeks ago. Will repeat CBC. Pt goes for low-dose CTs. [facility] Medical History Blindness of left eye (~1999) Hyperlipidemia Hypertension Metal foreign body in eye region (~1999) CAD (coronary artery disease) Nicotine dependence, cigarettes, uncomplicated Diabetes Surgical History History of heart artery stent Family History Father Esophageal cancer Social History Housing: House Patient Tobacco Use Status: Current everyday Tobacco user Cigarette Packs Per Day: 0.75 Cigarettes Per Day: 15 Years Smoked: (current smoker, onset 16yo, 1ppd x 41yrs, 40pyh) e-Cigarette/Vaping Use: Never Used Second Hand Smoke Exposure: Yes service: No Current occupational status: employed Current occupation: [employer] Current occupational exposures/hazards: Yes Cognitive needs: No Hearing needs: No Vision needs: No Questionnaire PHQ-9 Over the last 2 weeks, how often have you been bothered by any of the following problems? 89643 - PHQ-9 Billing: Patient declined-do not bill Source: Developed by Drs. Derick Nicole, Jessica Jacques, Monroe Fleming and colleagues, with an educational renae from [employer]. Thrive Questionnaire Date Thrive assessed: 02/11/23 What is your living situation today?: I choose not to answer this question Within the past 12 months, did the food you bought not last and you didn't have the money to get more?: I choose not to answer this question Within the past 12 months, did you worry whether your food would run out before you got money to buy more?: I choose not to answer this question Do you have trouble paying for medicines?: I choose not to answer this question Do you have trouble getting transportation to medical appointments?: I choose not to answer this question Do you have trouble paying your heating and electricity bill?: I choose not to answer this question Do you have trouble taking care of your child, family member or friend?: I choose not to answer this question Do you have trouble with day-to-day activities such as bathing, preparing meals, shopping, managing finances, etc.?: I choose not to answer this question Are you currently unemployed and looking for a job?: I choose not to answer this question Are you interested in more education?: I choose not to answer this question Currently or been in a relationship where the following occur: I choose not to answer this question THRIVE Score: 0 SUMAYA-7 AMB Questionnaire SUMAYA-7 Date SUMAYA - 7 assessed: 03/03/24 Source: Developed by Drs. Derick Nicole, Jessica Jacques, Monroe Fleming and colleagues, with an educational renae from [employer]. SUMAYA-7 Assessment Billing SUMAYA-7 Assessment Tool: pt declined-do not bill Review of Systems Const Denies chills and Denies fever(s) Eyes Denies blurry vision ENT Denies vertigo, Denies dizziness and Denies sore throat Card Denies chest pain at rest, Denies chest pain with activity, Denies diaphoresis, Denies dyspnea and Denies dyspnea on exertion Resp Denies cough, Denies dyspnea, Denies dyspnea on exertion and Denies wheezing GI Denies abdominal pain, Denies melena, Denies hematochezia, Denies constipation, Denies diarrhea and Denies loose stools Denies hematuria Musc Denies numbness and Denies tingling Skin/Breast Denies lesions Neuro Denies vertigo, Denies dizziness, Denies numbness and Denies tingling Psych Denies anxiety, Denies depression, Denies homicidal ideation, Denies suicidal ideation and Denies other (substance abuse) Aller/Immun Denies wheezing Physical exam (Primary Care) Vital Signs: Last Vital Signs Pulse 84 03/03/24 16:29 BP 120/74 03/03/24 16:29 Pulse Ox 98 03/03/24 16:29 Oxygen Delivery Method Room Air 03/03/24 16:29 Tobacco/Smoking Status: Tobacco use Status Tobacco use date assessed 11/24/23 03/03/24 16:28 Patient Tobacco Use Status Current everyday Tobacco 03/03/24 16:28 e-Cigarette/Vaping Use Never Used 03/03/24 16:28 Thrive Assessment: Date of Thrive Assessment Date Thrive assessed 02/11/23 03/03/24 16:28 Currently or been in a relationship where the following occur: I choose not to answer this question Const General: cooperative Nutritional Appearance: well nourished Orientation/consciousness: patient oriented x3 HENMT Head: Yes normal to inspection, Yes normocephalic and Yes atraumatic Ears: TM's normal bilaterally Eyes General: appearance normal, both eyes and all related structures Alignment and Position: alignment normal and position normal Neck Neck: Yes normal visual inspection and Yes no lymphadenopathy Thyroid: Thyroid normal Resp Effort & Inspection: normal respiratory effort Auscultation: clear to auscultation bilaterally Cardio Rate: regular rate Rhythm: regular rhythm Heart sounds: S1 normal heart sound present, S2 normal heart sound present and no murmurs GI Palpation (GI): Soft to palpation and nontender Auscultation: normal bowel sounds Male General Exam: Yes normal external exam Penis: normal penis Scrotum: scrotum normal, testes descended bilaterally and no inguinal hernias Testes: no testicular mass Skin Rashes: no rashes Neuro General: patient oriented x3, moves all extremities, no focal motor deficits and deep tendon reflexes 2+ bilaterally Romberg Test: Negative Extrem Other: bilat feet: + sensation with use of monofilament, feet intact, onychomycosis noted to bilat Psych Appearance: grossly normal Mental Status: mental status grossly normal Speech and movement: Normal speech and movement present Affect: normal affect Attitude: cooperative Thought process: Normal thought process present Thought content: Normal thought content present Insight: Good insight present (Psych) Judgement: Good judgement present (Psych) Results AMB Hemoglobin A1c AMB Hemoglobin A1c 7.1 % Last Edit by Kian Moss MA on 03/03/24 16:45 Results Reviewed Results Reviewed: Laboratory Last Values Hgb A1c (Clinic) 7.1 % (4.0-6.0) H 03/03/24 16:45 Assessment and Plan Assessment & Plan (1) Diabetes: Code(s): E11.9 - Type 2 diabetes mellitus without complications Plan: A1C done in office, labs ordered, working on diet (2) Physical exam: Code(s): Z00.00 - Encounter for general adult medical examination without abnormal findings Plan: labs ordered (3) Screening PSA (prostate specific antigen): Code(s): Z12.5 - Encounter for screening for malignant neoplasm of prostate Plan: psa ordered (4) Smoker: Code(s): F17.200 - Nicotine dependence, unspecified, uncomplicated Plan: encouraged to quit, LDCTs yearly Plan The patient agreed to the use of a certified medical biller for this encounter. Scribed for AD Peterson by Michell Saenz certified medical biller, on 03/03/2024 at 16:45 EST. Orders: Orders Comprehensive [place]. Panel Fast Today Z00.00 - Encounter for general adult medical examination without abnormal findings TSH reflex Free T4 Today Z00.00 - Encounter for general adult medical examination without abnormal findings Complete Blood Count Auto Diff Today Z00.00 - Encounter for general adult medical examination without abnormal findings UA CC w/rflx Micro + Cult Today Z00.00 - Encounter for general adult medical examination without abnormal findings Lipid Panel Today Z00.00 - Encounter for general adult medical examination without abnormal findings Microalbumin, Random (w Creat) Today E11.9 - Type 2 diabetes mellitus without complications Prostate Specific Antigen Scr Today Z12.5 - Encounter for screening for malignant neoplasm of prostate Coding Level of Care Code Est Pt Prev Care 40-64y(20579) Diagnoses Diabetes E11.9 Physical exam Z00.00 Screening PSA (prostate specific antigen) Z12.5 Smoker F17.200
[2024-03-03 16:29] VITALS: BP 120/74; PULSE 84; O2SAT 98
== END 2024-03-03 18:51 | disposition home or self-care (01) ==
PROVIDERS: PCP Nurse Practitioner Family; Visit Provider Nurse Practitioner Family
DX: E11.9 Type 2 diabetes mellitus without complications (principal); Z00.00 Encounter for general adult medical examination without abnormal findings; Z12.5 Encounter for screening for malignant neoplasm of prostate; F17.200 Nicotine dependence, unspecified, uncomplicated
CPT/HCPCS: 99396

== ENCOUNTER 2024-03-08 06:06 | Outpatient (REF) | payer BC, SELFPAY ==
[2024-03-08 10:25] LABS: MANUAL DIFF FLAG NO
[2024-03-08 10:33] LABS: Basophils Percent Auto 0.1 % (0-2); Eosinophils Absolute Auto 0.1 X10*3/uL (0.0-0.4); Eosinophils Percent Auto 1.2 % (0-4); Hematocrit 47.8 % (42.0-52.0); Hemoglobin 15.9 g/dl (14.0-18.0); Imm Gran Abs Auto 0.03 X10*3/uL (0.00-0.03); Imm Gran Pct Auto 0.3 % (0.0-0.4); Lymphocytes Absolute Auto 2.9 X10*3/uL (1.2-4.9); Lymphocytes Percent Auto 30.5 % (20-40); Mean Corpuscular HGB Conc 33.3 g/dl (31.0-36.0); Mean Corpuscular Hemoglobin 31.7 pg (27.0-33.0); Mean Corpuscular Volume 95.2 fL (80.0-98.0); Mean Platelet Volume 10.1 fL (9.4-12.4); Monocytes Absolute Auto 0.8 X10*3/uL (0.1-1.2); Monocytes Percent Auto 8.2 % (2-11); Neutrophils Absolute Auto 5.7 x10*3/uL (2.0-8.3); Neutrophils Percent Auto 59.7 % (45-73); Platelet Count 276 X10*3/uL (160-400); Red Blood Count 5.02 X10*6/uL (4.60-5.80); Red Cell Distribution Width 12.5 % (11.0-16.0); White Blood Count 9.5 X10*3/uL (4.8-10.8)
[2024-03-08 10:48] LABS: Appearance Urine Clear; Color Urine Yellow; Glucose Urine UA >=1000 mg/dL (Negative); Leukocyte Esterase Urine Negative (Negative); Nitrite Urine Negative (Negative); Specific Gravity - Urine >= 1.030 (1.005-1.025); UMIC TRIGGER UACC YES; Urine Blood Negative (Negative); Urine Ketones Negative (Negative); Urine Protein Negative (Neg-Trace)
[2024-03-08 10:56] LABS: Bacteria Urine None Seen (None Seen); Hyaline Casts Urine 0-2 /LPF (0-2); RBC Urine 0-2 /HPF (0-2); Squamous Epithelial Cell Urine 0-2 /HPF (0-2); WBC Urine 0-5 /HPF (0-5)
[2024-03-08 11:14] LABS: Creatinine Urine 103.42 mg/dL; Microalbum/Creatinine Ratio Ur 7.7 ug/mg cr (<30)
[2024-03-08 11:40] LABS: Alanine Aminotransferase 26 U/L (0-40); Albumin Level 4.4 g/dL (3.5-5.0); Alkaline Phosphatase 74 U/L (39-117); Anion Gap 13 (12-20); Aspartate Amino Transferase 22 U/L (5-37); Bilirubin Total 0.4 mg/dL (0.0-1.0); Blood Urea Nitrogen 17 mg/dL (9-16); Calcium 9.8 mg/dL (8.4-10.2); Carbon Dioxide 27 mmol/L (22-29); Chloride 104 mmol/L (96-108); Cholesterol 115 mg/dL (<200); Estimated Glomerular Filt Rate > 60; Glucose Fasting 140 mg/dL (60-99); HDL Cholesterol 47 mg/dL (>40); LDL Cholesterol Calculated 56 mg/dL (<100); Potassium 4.3 mmol/L (3.3-5.1); Sodium 140 mmol/L (135-145); Total Protein 7.1 g/dL (6.5-8.0); Triglycerides 61 mg/dL (<150)
[2024-03-08 11:45] LABS: Prostate Specific Antigen Scr 0.13 ng/mL (<0.05-4.0)
[2024-03-08 11:48] LABS: TSH reflex Free T4 2.06 uIU/mL (0.32-4.0)
== END 2024-03-08 06:07 | disposition home or self-care (01) ==
LOC: HO.HMGCLDS 06:06
PROVIDERS: PCP Nurse Practitioner Family; Visit Provider Nurse Practitioner Family
DX: Z00.00 Encounter for general adult medical examination without abnormal findings (principal); D72.829 Elevated white blood cell count, unspecified; E11.9 Type 2 diabetes mellitus without complications; Z12.5 Encounter for screening for malignant neoplasm of prostate
CPT/HCPCS: 36415; 80053; 80061; 81001; 82043; 82570; 84153; 84443; 85025

== ENCOUNTER 2024-05-31 06:03 | Outpatient (REF) | payer BC, SELFPAY ==
[2024-05-31 10:14] LABS: MANUAL DIFF FLAG NO
[2024-05-31 10:18] LABS: Basophils Percent Auto 0.2 % (0-2); Eosinophils Absolute Auto 0.1 X10*3/uL (0.0-0.4); Hematocrit 45.1 % (42.0-52.0); Hemoglobin 15.3 g/dl (14.0-18.0); Imm Gran Abs Auto 0.03 X10*3/uL (0.00-0.03); Imm Gran Pct Auto 0.3 % (0.0-0.4); Lymphocytes Absolute Auto 2.8 X10*3/uL (1.2-4.9); Lymphocytes Percent Auto 31.5 % (20-40); Mean Corpuscular HGB Conc 33.9 g/dl (31.0-36.0); Mean Corpuscular Hemoglobin 32.5 pg (27.0-33.0); Mean Corpuscular Volume 95.8 fL (80.0-98.0); Monocytes Absolute Auto 0.7 X10*3/uL (0.1-1.2); Monocytes Percent Auto 7.7 % (2-11); Neutrophils Absolute Auto 5.2 x10*3/uL (2.0-8.3); Neutrophils Percent Auto 59.3 % (45-73); Platelet Count 264 X10*3/uL (160-400); Red Blood Count 4.71 X10*6/uL (4.60-5.80); Red Cell Distribution Width 12.6 % (11.0-16.0); White Blood Count 8.7 X10*3/uL (4.8-10.8)
[2024-05-31 10:22] LABS: Appearance Urine Cloudy; Color Urine Dark Yellow; Glucose Urine UA 100 mg/dL (Negative); Leukocyte Esterase Urine Negative (Negative); Nitrite Urine Negative (Negative); Specific Gravity - Urine 1.025 (1.005-1.025); Urine Blood Negative (Negative); Urine Ketones Trace mg/dL (Negative); Urine Protein Negative (Neg-Trace)
== END 2024-05-31 06:04 | disposition home or self-care (01) ==
LOC: HO.HMGCLDS 06:03
PROVIDERS: PCP Nurse Practitioner Family; Visit Provider Nurse Practitioner Family
DX: Z00.00 Encounter for general adult medical examination without abnormal findings (principal)
CPT/HCPCS: 36415; 81003; 85025

== ENCOUNTER 2024-05-31 12:22 | Outpatient (AMB) | payer BC, SELFPAY ==
[2024-05-31 12:23] VITALS: BP 126/70; PULSE 83; O2SAT 96
--- NOTE | 2024-05-31 12:23 | A.OFFPC_ITS ---
Vital Signs 05/31/24 12:23 Height 5 ft 7 in Weight 191 lb 6 oz BMI 30.0 BP 126/70 Blood Pressure Location Rt brachial Position Sitting Pulse 83 Pulse Source Pulse Oximeter Pulse Oximetry (%) 96 Oxygen Delivery Method Room Air Intake Visit Reasons: 3 Month diabetes f/u Allergies No Known Allergies [No Known Allergies*] Allergy (Verified 05/31/24 12:35) Medication List - Last Reconciled 05/31/24 by DARIUS Cullen- aspirin (Adult Aspirin Regimen) 162 mg (2 x 81 mg) PO DAILY atorvastatin 80 mg PO DAILY 90 days bisacodyl (Dulcolax (bisacodyl)) 20 mg (4 x 5 mg) PO ONCE 1 day blood sugar diagnostic (Freestyle InsuLinx Test Strips) TID testing empagliflozin 25 mg PO DAILY 90 days lancets (FreeStyle Lancets) TID testing lisinopril 2.5 mg PO DAILY 90 days metformin 1,000 mg PO BID 90 days metoprolol succinate ER 50 mg PO DAILY 90 days polyethylene glycol 3350 (Miralax) 238 grams PO ONCE Tobacco use date assessed: 05/31/24 Dental Screening Dental Screen Date: 05/31/24 Did you have a dental visit in the last 12 months?: Yes Did you have a dental problem in the last 6 months where you did not have access to dental care?: No Was dental information given to patient?: Patient has dentist HPI 3 Month diabetes f/u HPI Details Pt is a diabetic, on an CONSTANZA and a statin. A1C in office today is 7.1. Microalbumin is up to date. Denies polyuria, polydipsia, and neuropathy. Pt denies any signs and symptoms of hypoglycemia and does know how to correct it. Eye exam is scheduled. Pt follows up with podiatry. HTN: Blood pressure is stable, managed with lisinopril 2.5mg and metoprolol 50mg. Pt reports that he has been out of his medications. Denies chest pain, shortness of breath, headache, dizziness, and blurred vision. Pt has a hx of CAD. Will do an EKG in office. Pt reports ongoing numbness of his LUE (especially to fingers 4 and 5). Please see recent EMG/nerve conduction testing. He will contact his neurosurgeon about this. NOTE: New Left anterior fascicular Block. Hx of Coronary Artery stent(s) placement previously ([facility]). Do not have records of this, pt has not seen a tack cleaner in quite some time. Will refer to cardiology. [facility] Medical History Entrapment of left ulnar nerve Blindness of left eye (~1999) Hyperlipidemia Hypertension Metal foreign body in eye region (~1999) CAD (coronary artery disease) Nicotine dependence, cigarettes, uncomplicated Diabetes Surgical History History of heart artery stent Family History Father Esophageal cancer Social History Housing: House Patient Tobacco Use Status: Current everyday Tobacco user Cigarette Packs Per Day: 0.75 Cigarettes Per Day: 15 Years Smoked: (current smoker, onset 16yo, 1ppd x 41yrs, 40pyh) e-Cigarette/Vaping Use: Never Used Second Hand Smoke Exposure: Yes service: No Current occupational status: employed Current occupation: [employer] Current occupational exposures/hazards: Yes Cognitive needs: No Hearing needs: No Vision needs: No Questionnaire PHQ-9 Over the last 2 weeks, how often have you been bothered by any of the following problems? 1. Little interest or pleasure in doing things: not at all 2. Feeling down, depressed, or hopeless: not at all 3. Trouble falling or staying asleep, or sleeping too much: more than half the days 4. Feeling tired or having little energy: not at all 5. Poor appetite or overeating: not at all 6. Feeling bad about yourself - or that you are a failure or have let yourself or your family down: not at all 7. Trouble concentrating on things, such as reading the newspaper or watching television: not at all 8. Moving or speaking so slowly that other people could have noticed. Or the opposite - being so fidgety or restless that you have been moving around a lot more than usual: not at all 9. Thoughts that you would be better off or of hurting yourself in some way: not at all Total score: 2 Depression Screening Interpretation: Negative Depression Screening Done: Yes 32692 - PHQ-9 Billing: Yes Source: Developed by Drs. Derick Nicole, Jessica Jacques, Monroe Fleming and colleagues, with an educational renae from [employer]. Thrive Questionnaire Date Thrive assessed: 05/31/24 I am a: Patient What is your living situation today?: I have a steady place to live Within the past 12 months, did the food you bought not last and you didn't have the money to get more?: Never true Within the past 12 months, did you worry whether your food would run out before you got money to buy more?: Never true Do you have trouble paying for medicines?: No Do you have trouble getting transportation to medical appointments?: No Do you have trouble paying your heating and electricity bill?: No Do you have trouble taking care of your child, family member or friend?: No Do you have trouble with day-to-day activities such as bathing, preparing meals, shopping, managing finances, etc.?: No Are you currently unemployed and looking for a job?: No Are you interested in more education?: No Please select the resources that you would like help with: Housing/Halfway Currently or been in a relationship where the following occur: No concerns reported THRIVE Score: 0 AUDIT C Alcohol Use Questionnaire (AUDIT-C) 1. How often do you have a drink containing alcohol?: Monthly or less 2. How many drinks containing alcohol do you have on a typical day when you are drinking?: 1 or 2 3. How often do you have six or more drinks on one occasion?: Never Total Score: 1 Score Reviewed/Action Taken: Yes SUMAYA-7 AMB Questionnaire SUMAYA-7 Date SUMAYA - 7 assessed: 05/31/24 Feeling nervous, anxious, or on edge: 0 = Not at all Not being able to stop or control worryin = Not at all Worrying too much about different things: 0 = Not at all Trouble relaxin = Not at all Being so restless that it is hard to sit still: 0 = Not at all Becoming easily annoyed or irritable: 0 = Not at all Feeling afraid as if something awful might happen: 0 = Not at all Total SUMAYA-7 score (0-4 normal; 5-9 mild; 10-14 moderate; 15-21 severe): 0 Source: Developed by Drs. Derick Nicole, Jessica Jacques, Monroe Fleming and colleagues, with an educational renae from [employer]. SUMAYA-7 Assessment Billing SUMAYA-7 Assessment Tool: SUMAYA-7 Assessment 07833 Review of Systems Const Reports as per HPI Physical exam (Primary Care) Vital Signs: Last Vital Signs Pulse 83 05/31/24 12:23 BP 126/70 05/31/24 12:23 Pulse Ox 96 05/31/24 12:23 Oxygen Delivery Method Room Air 05/31/24 12:23 BMI result Body Mass Index 30.0 Tobacco/Smoking Status: Tobacco use Status Tobacco use date assessed 05/31/24 05/31/24 12:28 Patient Tobacco Use Status Current everyday Tobacco 05/31/24 12:25 e-Cigarette/Vaping Use Never Used 05/31/24 12:25 PHQ-9: PHQ-9 Score PHQ-9: Total score 2 05/31/24 12:31 Depression Screening Interpretation: Negative Thrive Assessment: Date of Thrive Assessment Date Thrive assessed 05/31/24 05/31/24 12:31 Currently or been in a relationship where the following occur: No concerns reported Const General: cooperative Orientation/consciousness: patient oriented x3 Resp Effort & Inspection: normal respiratory effort Auscultation: clear to auscultation bilaterally Cardio Rate: regular rate Rhythm: regular rhythm Heart sounds: S1 normal heart sound present and S2 normal heart sound present Neuro General: patient oriented x3 Extrem Other: bilat feet: + sensation with use of monofilament, feet intact, onychomycosis noted bilat Psych Appearance: grossly normal Mental Status: mental status grossly normal Speech and movement: Normal speech and movement present Affect: normal affect Attitude: cooperative Thought process: Normal thought process present Thought content: Normal thought content present Insight: Good insight present (Psych) Judgement: Good judgement present (Psych) Results AMB Hemoglobin A1c AMB Hemoglobin A1c 7.1 % Last Edit by Demetrius Leyva CMA on 05/31/24 13: 34 Assessment and Plan Assessment & Plan (1) Diabetes: Code(s): E11.9 - Type 2 diabetes mellitus without complications Plan: Labs ordered (2) CAD (coronary artery disease): Comment: (Hx 2 stents in 2013) Code(s): I25.10 - Atherosclerotic heart disease of [place] coronary artery without angina pectoris Plan: 2 stents placed in 2013. New block on EKG today, referring to cardio (denies any SOB or CP) (3) Hypertension: Code(s): I10 - Essential (primary) hypertension (4) Left anterior fascicular block (LAFB): Code(s): I44.4 - Left anterior fascicular block Plan The patient agreed to the use of a medical art therapist for this encounter. Scribed for DARIUS Peterson- by Michell Saenz medical art therapist, on 05/31/2024 at 12:35 EST. Orders: Orders Comprehensive [place]. Panel Fast Today E11.9 - Type 2 diabetes mellitus without complications Lipid Panel Today E11.9 - Type 2 diabetes mellitus without complications TSH reflex Free T4 Today E11.9 - Type 2 diabetes mellitus without complications UA CC w/rflx Micro + Cult Today E11.9 - Type 2 diabetes mellitus without complications CA echo transthoracic complete Today E11.9 - Type 2 diabetes mellitus without complications, I25.10 - Atherosclerotic heart disease of [place] coronary artery without angina pectoris, I44.4 - Left anterior fascicular block Complete Blood Count Auto Diff Today E11.9 - Type 2 diabetes mellitus without complications AMB EKG-In Office Today E11.9 - Type 2 diabetes mellitus without complications, I10 - Essential (primary) hypertension, I25.10 - Atherosclerotic heart disease of [place] coronary artery without angina pectoris AMB Hemoglobin A1c Today Z13.9 - Encounter for screening, unspecified Referrals Cardiology Referral I44.4 - Left anterior fascicular block Medications: Refilled metformin 1,000 mg PO BID 90 days 180 tabs 3RF metoprolol succinate ER 50 mg PO DAILY 90 days 90 tabs 3RF aspirin (Adult Aspirin Regimen) 162 mg (2 x 81 mg) PO DAILY 90 tabs 0RF empagliflozin 25 mg PO DAILY 90 days 90 tabs 4RF Coding Level of Care Code Est Pt Level 3 (26626) Diagnoses Diabetes E11.9 CAD (coronary artery disease) I25.10 Hypertension I10 Left anterior fascicular block (LAFB) I44.4 Additional Codes SUMAYA-7 Assessment Billing - SUMAYA-7 Assessment Tool: SUMAYA-7 Assessment 03033 ([id number])
== END 2024-05-31 13:22 | disposition home or self-care (01) ==
PROVIDERS: PCP Nurse Practitioner Family; Visit Provider Nurse Practitioner Family
DX: E11.9 Type 2 diabetes mellitus without complications (principal); I25.10 Atherosclerotic heart disease of native coronary artery without angina pectoris; I10 Essential (primary) hypertension; I44.4 Left anterior fascicular block
CPT/HCPCS: 83036; 99213

== ENCOUNTER → 2024-06-29 14:53 | Outpatient (REF) | payer BC, SELFPAY ==
--- NOTE | 2024-06-29 14:55 | CA_ITS ---
Transthoracic Echocardiogram Patient (Last, First, Middle): Bubba Pulido, Gender: Male Date of : 1965 Age: 59 Procedure Date: 06/29/2024 Procedure Type: Transthoracic Echocardiogram Location: OP Height: 170.18 cm Weight: 84.37 kg BSA: 1.96 m2 Heart Rate: bpm BP: 121 / 78 mmHg Collar Setter Overlock: RIVER Referring MD: Richard Campuzano [facility] Symptoms: E11.9 - Type 2 diabetes mellitus without complications Study Quality: Adequate ECG Rhythm: Sinus Conclusions: - The left ventricular systolic function is normal. The calculated ejection fraction is 61% by biplane method. - There is mild calcification of the aortic valve. - Small plaque is seen in the sino tubular ridge. Findings Left Ventricle Normal left ventricular cavity size. There is normal left ventricular wall thickness. The left ventricular systolic function is normal. The calculated ejection fraction is 61% by biplane method. There is no evidence of regional wall motion abnormalities. Diastolic function is normal for age. Right Ventricle Normal right ventricular cavity size and systolic function. Atria Both atria are normal in size. Aortic Valve There is a normal trileaflet aortic valve. There is mild calcification of the aortic valve. There is no aortic valve stenosis. There is no aortic valve regurgitation. Mitral Valve The mitral valve appears normal. There is mild mitral annular calcification. There is no mitral valve regurgitation. There is no mitral valve stenosis. Pulmonic Valve The pulmonic valve is likely normal. Tricuspid Valve There is no tricuspid valve regurgitation. Tricuspid regurgitation envelope is inadequate for calculation of right ventricular systolic pressure. Great Vessels The asc aorta is normal in size. Small plaque is seen in the sino tubular ridge. Venous The inferior vena cava is normal in size and collapses greater than 50% with inspiration. Prior Study Comparison No prior study available for comparison. Measurements 2D Linear Measurements IVSd: 0.98 0.6-0.9/0.6-1.0 cm LVIDd: 4.46 3.9-5.3/4.2-5.9 cm LVIDd Index: 2.28 2.4-3.2/2.2-3.1 cm/m2 LVIDs: 2.81 2.0-3.6 cm LVPWd: 1.02 0.7-1.1 cm LA Diam: 3.10 2.7-3.8/3.0-4.0 cm LAIDs Index: 1.58 1.5-2.3 cm/m2 LV Mass: 187.97 67-162/88-224 g LV Mass Index: 95.91 43-95/49-115 g/m2 LVOT Diam: 2.00 3.0+(-)1.3 cm 2D Systolic Function EF 4C: 59.40 >55% EF 2C: 60.50 >55% EF BiP: 61.10 >55% Mitral Valve MV Pk E: 0.48 MV PK A: 0.52 MV Decel Time: 297.00 E/A: 0.90 E'Lateral: 8.38 E'Medial: 6.74 E/E' Med: 7.10 E/E' Lat: 5.70 PHT: 87.00 MVA PHT: 2.53 Decel [place]: 1.60 Aortic Valve AoV Pk Sherman: 1.48 AoV Mn Sherman: 0.93 AoV VTI: 0.28 AoV Pk Grad: 9.00 Aov Mn Grad: 4.00 ANDREY Cont.VTI: 2.06 LVOT LVOT Pk [place]: 0.89 LVOT Mn [place]: 0.59 LVOT VTI: 0.18 LVOT Pk Grad: 3.00 LVOT Mn Grad: 2.00 LVOT Diam: 2.00 LVOT Area: 3.14 Diastolic Function MV Pk E: 0.48 MV Pk A: 0.52 E/A: 0.90 E'Medial: 6.74 E/E' Med: 7.10 E' Laterial: 8.38 E/E' Lat: 5.70 Right Ventricle TAPSE (mm): 21.30 TVS' Sherman: 12.10 Tricuspid Valve RA Press: 3.00 Great Vessels Aorta Sinus of Valsalva: 3.34 2.0-3.[address] [place]: 2.62 1.7-3.4 cm Ao Asc: 3.50 2.1-3.4 cm Updated in Other Vendor System with Status of Final Ramana Fry MD electronically signed on 06/30/2024 12:12:08 PM with status of Final
== END ==
LOC: HO.CARD 14:53
PROVIDERS: PCP Nurse Practitioner Family; Visit Provider Nurse Practitioner Family
DX: I25.10 Atherosclerotic heart disease of native coronary artery without angina pectoris (principal); I44.4 Left anterior fascicular block; E11.9 Type 2 diabetes mellitus without complications
CPT/HCPCS: 93306

== ENCOUNTER → 2024-06-29 14:55 | Outpatient (BNV) | payer BC, SELFPAY | PROVIDERS: PCP Nurse Practitioner Family; Visit Provider Internal Medicine | DX: I35.8 Other nonrheumatic aortic valve disorders (principal); I34.81 Nonrheumatic mitral (valve) annulus calcification | CPT/HCPCS: 93306 ==

== ENCOUNTER 2024-09-08 06:02 | Outpatient (REF) | payer BC, SELFPAY ==
[2024-09-08 10:04] LABS: MANUAL DIFF FLAG NO
[2024-09-08 10:09] LABS: Basophils Percent Auto 0.3 % (0-2); Eosinophils Absolute Auto 0.2 X10*3/uL (0.0-0.4); Eosinophils Percent Auto 1.7 % (0-4); Hematocrit 48.7 % (42.0-52.0); Hemoglobin 16.3 g/dl (14.0-18.0); Imm Gran Abs Auto 0.03 X10*3/uL (0.00-0.03); Imm Gran Pct Auto 0.3 % (0.0-0.4); Lymphocytes Absolute Auto 3.2 X10*3/uL (1.2-4.9); Lymphocytes Percent Auto 27.3 % (20-40); Mean Corpuscular HGB Conc 33.5 g/dl (31.0-36.0); Mean Corpuscular Hemoglobin 32.3 pg (27.0-33.0); Mean Corpuscular Volume 96.6 fL (80.0-98.0); Mean Platelet Volume 10.2 fL (9.4-12.4); Monocytes Absolute Auto 0.9 X10*3/uL (0.1-1.2); Monocytes Percent Auto 7.9 % (2-11); Neutrophils Absolute Auto 7.4 x10*3/uL (2.0-8.3); Neutrophils Percent Auto 62.5 % (45-73); Platelet Count 290 X10*3/uL (160-400); Red Blood Count 5.04 X10*6/uL (4.60-5.80); Red Cell Distribution Width 12.4 % (11.0-16.0); White Blood Count 11.8 X10*3/uL (4.8-10.8)
[2024-09-08 10:24] LABS: Appearance Urine Clear; Color Urine Yellow; Glucose Urine UA >=1000 mg/dL (Negative); Leukocyte Esterase Urine Negative (Negative); Nitrite Urine Negative (Negative); PH 5.5 (5.0-9.0); Specific Gravity - Urine >= 1.030 (1.005-1.025); UMIC TRIGGER UACC YES; Urine Blood Negative (Negative); Urine Ketones Trace mg/dL (Negative); Urine Protein Negative (Neg-Trace)
[2024-09-08 10:30] LABS: Bacteria Urine None Seen (None Seen); Hyaline Casts Urine 0-2 /LPF (0-2); RBC Urine 0-2 /HPF (0-2); Squamous Epithelial Cell Urine 0-2 /HPF (0-2); WBC Urine 0-5 /HPF (0-5)
[2024-09-08 12:49] LABS: Alanine Aminotransferase 38 U/L (0-40); Albumin Level 4.6 g/dL (3.5-5.0); Alkaline Phosphatase 65 U/L (39-117); Anion Gap 15 (12-20); Aspartate Amino Transferase 43 U/L (5-37); Bilirubin Total 0.6 mg/dL (0.0-1.0); Blood Urea Nitrogen 19 mg/dL (9-16); Calcium 9.8 mg/dL (8.4-10.2); Carbon Dioxide 25 mmol/L (22-29); Chloride 105 mmol/L (96-108); Cholesterol 123 mg/dL (<200); Estimated Glomerular Filt Rate > 60; Glucose Fasting 123 mg/dL (60-99); HDL Cholesterol 52 mg/dL (>40); LDL Cholesterol Calculated 56 mg/dL (<100); Sodium 141 mmol/L (135-145); Total Protein 7.4 g/dL (6.5-8.0); Triglycerides 77 mg/dL (<150)
== END 2024-09-08 06:03 | disposition home or self-care (01) ==
LOC: HO.HMGCLDS 06:02
PROVIDERS: PCP Nurse Practitioner Family; Visit Provider Nurse Practitioner Family
DX: E11.9 Type 2 diabetes mellitus without complications (principal)
CPT/HCPCS: 36415; 80053; 80061; 81001; 84443; 85025

== ENCOUNTER 2024-09-09 15:19 | Outpatient (AMB) | payer BC, SELFPAY ==
[2024-09-09 15:26] VITALS: BP 128/74; PULSE 82; O2SAT 98; BMI 28.5
--- NOTE | 2024-09-09 15:26 | MHC.PC.OV ---
Vital Signs 09/09/24 15:26 Height 5 ft 7 in Weight 182 lb BMI 28.5 BP 128/74 Blood Pressure Location Rt brachial Position Sitting Pulse 82 Pulse Source Pulse Oximeter Pulse Oximetry (%) 98 Intake Visit Reasons: follow up - DM Intake Note: pt is here for follow up, DM Allergies No Known Allergies [No Known Allergies*] Allergy (Verified 05/31/24 12:35) Medication List - Last Reconciled 09/09/24 by Lyric Flores NP aspirin (Adult Aspirin Regimen) 162 mg (2 x 81 mg) PO DAILY atorvastatin 80 mg PO DAILY 90 days bisacodyl (Dulcolax (bisacodyl)) 20 mg (4 x 5 mg) PO ONCE 1 day blood sugar diagnostic (Freestyle InsuLinx Test Strips) TID testing empagliflozin 25 mg PO DAILY 90 days lancets (FreeStyle Lancets) TID testing lisinopril 2.5 mg PO DAILY 90 days metformin 1,000 mg PO BID 90 days metoprolol succinate ER 50 mg PO DAILY 90 days polyethylene glycol 3350 (Miralax) 238 grams PO ONCE Tobacco use date assessed: 05/31/24 Dental Screening Dental Screen Date: 05/31/24 HPI HPI Comments History of Present Illness Details 59 y/o male patient who presents to the clinic for follow up. He is a patient of Richard Campuzano. T2DM: Current regiment Jardiance 25 mg and Metformin 1000 mg BID. A1C today 6.3%, dropped from 7.3% back in May. Reports BG numbers have been ranging in 120s-130s. Denies any low > 60. He has been cleaning up his eating habits.He has cut out all the Carbs and sugars. HTN: Current regiment Metoprolol 50 mg and Lisinopril 2.5 mg daily. BP today stable. Denies CP, SOB, Headaches or dizziness. [facility] Medical History Entrapment of left ulnar nerve Blindness of left eye (~1999) Hyperlipidemia Hypertension Metal foreign body in eye region (~1999) CAD (coronary artery disease) Nicotine dependence, cigarettes, uncomplicated Diabetes Surgical History History of heart artery stent Family History Father Esophageal cancer Social History Housing: House Patient Tobacco Use Status: Current everyday Tobacco user Cigarette Packs Per Day: 0.75 Cigarettes Per Day: 15 Years Smoked: (current smoker, onset 16yo, 1ppd x 41yrs, 40pyh) e-Cigarette/Vaping Use: Never Used Second Hand Smoke Exposure: Yes service: No Current occupational status: employed Current occupation: [employer] Current occupational exposures/hazards: Yes Cognitive needs: No Hearing needs: No Vision needs: No Questionnaire Thrive Questionnaire Date Thrive assessed: 05/31/24 I am a: Patient What is your living situation today?: I have a steady place to live Within the past 12 months, did the food you bought not last and you didn't have the money to get more?: Never true Within the past 12 months, did you worry whether your food would run out before you got money to buy more?: Never true Do you have trouble paying for medicines?: No Do you have trouble getting transportation to medical appointments?: No Do you have trouble paying your heating and electricity bill?: No Do you have trouble taking care of your child, family member or friend?: No Do you have trouble with day-to-day activities such as bathing, preparing meals, shopping, managing finances, etc.?: No Are you currently unemployed and looking for a job?: No Are you interested in more education?: No Please select the resources that you would like help with: None Currently or been in a relationship where the following occur: No concerns reported THRIVE Score: 0 SUMAYA-7 AMB Questionnaire SUMAYA-7 Date SUMAYA - 7 assessed: 05/31/24 Source: Developed by Drs. Derick Nicole, Jessica Jacques, Monroe Fleming and colleagues, with an educational renae from [employer]. Review of Systems Const All systems reviewed & are unremarkable except as noted in HPI and below Physical exam (Primary Care) Vital Signs: Last Vital Signs Pulse 82 09/09/24 15:26 BP 128/74 09/09/24 15:26 Pulse Ox 98 09/09/24 15:26 BMI result Body Mass Index 28.5 Tobacco/Smoking Status: Tobacco use Status Tobacco use date assessed 05/31/24 09/09/24 15:28 Patient Tobacco Use Status Current everyday Tobacco 09/09/24 15:28 e-Cigarette/Vaping Use Never Used 09/09/24 15:28 Thrive Assessment: Date of Thrive Assessment Date Thrive assessed 05/31/24 09/09/24 15:28 Currently or been in a relationship where the following occur: No concerns reported Const General: cooperative, comfortable and no acute distress Nutritional Appearance: overweight Orientation/consciousness: patient oriented x3 Resp Effort & Inspection: normal respiratory effort Auscultation: clear to auscultation bilaterally Cardio Heart sounds: S1 normal heart sound present and S2 normal heart sound present Neuro General: patient oriented x3, gait normal and moves all extremities Psych Speech and movement: Normal speech and movement present Results AMB Hemoglobin A1c AMB Hemoglobin A1c 6.3 % Last Edit by Demetrius Leyva CMA on 09/09/24 16:06 Results Reviewed Results Reviewed: Laboratory Last Values Hgb A1c (Clinic) 6.3 % (4.0-6.0) H 09/09/24 16:06 Coding Level of Care Code Est Pt Level 4 (80914) Diagnoses Type 2 diabetes mellitus without complication, without long-term current use of insulin E11.9 Diabetes mellitus complication status: without complication Diabetes mellitus 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 insulin use: without nursing home use Diabetes mellitus type: type 2 Primary hypertension I10 Hypertension type: primary hypertension Time Spent (min) 20 Comment SPENT ON PATIENT EDUCATION Assessment & Plan Assessment & Plan (1) Diabetes: Code(s): E11.9 - Type 2 diabetes mellitus without complications Category: Medical Qualifiers: Diabetes mellitus complication status: without complication Diabetes mellitus nursing home insulin use: without 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 use Diabetes mellitus type: type 2 Qualified Code(s): E11.9 - Type 2 diabetes mellitus without complications Plan: Will have Pt take Metformin 1000 mg once a day at Bedtime. A1C dropped from 7.3% to 6.3%. Continue Jardiance 25 mg daily. Continue lifestyle changes. (2) Hypertension: Code(s): I10 - Essential (primary) hypertension Category: Medical Qualifiers: Hypertension type: primary hypertension Qualified Code(s): I10 - Essential (primary) hypertension Plan: Continue on current regiment. DASH diet Lifestyle changes. Orders: Orders AMB Hemoglobin A1c Today Z13.9 - Encounter for screening, unspecified
== END 2024-09-09 16:14 | disposition home or self-care (01) ==
LOC: HO.HMCC 15:19
PROVIDERS: PCP Nurse Practitioner Family; Visit Provider Nurse Practitioner Family
DX: E11.9 Type 2 diabetes mellitus without complications (principal); I10 Essential (primary) hypertension; Z13.9 Encounter for screening, unspecified

== ENCOUNTER → 2024-09-09 15:19 | Outpatient (BNVA) | payer BC, SELFPAY | PROVIDERS: PCP Nurse Practitioner Family; Visit Provider Nurse Practitioner Family | DX: E11.9 Type 2 diabetes mellitus without complications (principal); I10 Essential (primary) hypertension | CPT/HCPCS: 83036 ==

== ENCOUNTER 2024-09-21 14:42 | Outpatient (AMB) | payer BC, SELFPAY ==
[2024-09-21 14:45] VITALS: BP 120/70; PULSE 59; BMI 28.8
--- NOTE | 2024-09-21 14:45 | A.OFFVIS_ITS ---
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: No Accompanied by: Self / Same As Patient Allergies No Known Allergies [No Known Allergies*] Allergy (Verified 05/31/24 12:35) Medication List - Last Reconciled 09/21/24 by Ramana Fry MD aspirin (Adult Aspirin Regimen) 162 mg (2 x 81 mg) PO DAILY atorvastatin 80 mg PO DAILY 90 days bisacodyl (Dulcolax (bisacodyl)) 20 mg (4 x 5 mg) PO ONCE 1 day blood sugar diagnostic (Freestyle InsuLinx Test Strips) TID testing empagliflozin 25 mg PO DAILY 90 days gabapentin 300 mg PO TID lancets (FreeStyle Lancets) TID testing lisinopril 2.5 mg PO DAILY 90 days metformin 1,000 mg PO ONCE metoprolol succinate ER (Toprol XL) 25 mg PO DAILY polyethylene glycol 3350 (Miralax) 238 grams PO ONCE HPI Comments Details: Bubba has been referred for cardiac evaluation. He does not have any cardiac symptoms at this time. Has seen Dr. Riojas in the past but not recently. Based on cardiac catheterization 2012, two-vessel CAD with stenting of the distal RCA into PDA as well as angioplasty of ostial LPL branch. He states he is fully active with absolutely no limitations. No angina or in fact any other concerns. Compliant with medications. [facility] Medical History Entrapment of left ulnar nerve Blindness of left eye (~1999) Hyperlipidemia Hypertension Metal foreign body in eye region (~1999) CAD (coronary artery disease) Nicotine dependence, cigarettes, uncomplicated Diabetes Surgical History History of heart artery stent Family History Father Esophageal cancer Social History Housing: House Patient Tobacco Use Status: Current everyday Tobacco user Cigarette Packs Per Day: 0.75 Cigarettes Per Day: 15 Years Smoked: (current smoker, onset 16yo, 1ppd x 41yrs, 40pyh) e-Cigarette/Vaping Use: Never Used Second Hand Smoke Exposure: Yes service: No Current occupational status: employed Current occupation: [employer] Current occupational exposures/hazards: Yes Cognitive needs: No Hearing needs: No Vision needs: No Review of Systems Const Denies chills, Denies fatigue, Denies fever(s), Denies frequent falls, Denies weakness, Denies weight gain and Denies weight loss ENT Denies dizziness Card Denies chest pain, Denies leg edema, Denies lightheadedness, Denies palpitations, Denies dyspnea and Denies dyspnea on exertion Resp Denies cough, Denies dyspnea and Denies dyspnea on exertion GI Denies hematochezia Musc Denies abnormal gait, Denies muscle weakness, Denies numbness, Denies radiating pain into limb and Denies tingling Neuro Denies abnormal gait, Denies dizziness, Denies frequent falls, Denies numbness, Denies tingling and Denies weakness Endo Denies fatigue and Denies palpitations Physical Exam Vital Signs: Last Vital Signs Pulse 59 09/21/24 14:45 BP 120/70 09/21/24 14:45 BMI result Body Mass Index 28.8 Const General: comfortable and no acute distress Orientation/consciousness: patient oriented x3 HEENT Other: Unremarkable Head: Yes normal to inspection Neck Neck: Yes normal visual inspection Chest Chest palpation & inspection: normal inspection of the chest Resp Auscultation: clear to auscultation bilaterally Cardio Palpation: normal PMI Heart sounds: S1 normal heart sound present, S2 normal heart sound present, no gallops, no murmurs and no rubs GI Palpation (GI): Soft to palpation Back/Spine/Pelvis Other: unremarkable Skin General skin exam: no rashes or lesions noted Neuro General: patient oriented x3 Extrem General: Yes normal to inspection Psych Mental Status: mental status grossly normal Office Procedures EKG Details: EKG with sinus bradycardia, 59/Min; right bundle-branch block and left anterior fascicular block; [place] [address]-[id number], Complete Assessment & Plan Assessment & Plan (1) CAD (coronary artery disease): Comment: (Hx 2 stents in 2012) Code(s): I25.10 - Atherosclerotic heart disease of [place] coronary artery without angina pectoris Category: Medical Plan: Cardiac catheterization reviewed from 2012. Two-vessel CAD. Status post YURI to distal RCA into the PDA branch. Angioplasty of ostial LPL. Clinically, no angina. Continue long-term aspirin. Statins. LDL cholesterol 56 mg/dL. (2) Bifascicular block: Code(s): I45.2 - Bifascicular block Category: Medical Plan: Discussed with patient about this. We can cut back on the beta-genia dosing as he has got no angina otherwise. In the echocardiogram, preserved LVEF at 61%. No wall motion abnormalities. Medications: New metoprolol succinate ER (Toprol XL) 25 mg PO DAILY 90 tabs 1RF Ramana Fyr MD Changed From metformin 1,000 mg PO BID 180 tabs 3RF 90 days To metformin 1,000 mg PO ONCE Richard Campuzano [facility]- Discontinued metoprolol succinate ER Discontinued Reason: Doctor's Order 50 mg PO DAILY 90 tabs 3RF 90 days Ramana Fry MD Coding Level of Care Code New Pt Level 4 (43811) Diagnoses CAD (coronary artery disease) I25.10 Bifascicular block I45.2 CPT Codes EKG - CPT: 94218-[id number], Complete ([id number])
== END 2024-09-21 15:25 | disposition home or self-care (01) ==
PROVIDERS: PCP Nurse Practitioner Family; Visit Provider Internal Medicine
DX: I25.10 Atherosclerotic heart disease of native coronary artery without angina pectoris (principal); I45.2 Bifascicular block
CPT/HCPCS: 93010; 99214

== ENCOUNTER → 2024-09-21 14:42 | Outpatient (BNVA) | payer BC, SELFPAY | PROVIDERS: PCP Nurse Practitioner Family; Visit Provider Internal Medicine | DX: I25.10 Atherosclerotic heart disease of native coronary artery without angina pectoris (principal); I45.2 Bifascicular block; Z79.82 Long term (current) use of aspirin | CPT/HCPCS: 93005 ==

== ENCOUNTER 2024-10-06 07:50 | Outpatient (REF) | payer BC, SELFPAY | END 2024-10-06 07:51 | disposition home or self-care (01) | LOC: HO.US 07:50 | PROVIDERS: PCP Nurse Practitioner Family; Visit Provider Nurse Practitioner Family | DX: R74.8 Abnormal levels of other serum enzymes (principal) | CPT/HCPCS: 76700; 76981 ==

== ENCOUNTER → 2024-10-06 07:51 | Outpatient (BNV) | payer BC, SELFPAY | PROVIDERS: PCP Nurse Practitioner Family; Visit Provider Radiology Diagnostic Radiology | DX: D18.03 Hemangioma of intra-abdominal structures (principal); R74.01 Elevation of levels of liver transaminase levels | CPT/HCPCS: 76700 ==

== ENCOUNTER 2024-12-13 06:04 | Outpatient (REF) | payer BC, SELFPAY ==
[2024-12-14 08:18] LABS: HBS Num1 1.11 mIU/mL (0-7.99); Hepatitis A Antibody IgM 0.13 Index (0-0.79); Hepatitis B Core Antibody Nonreactive (Nonreactive); Hepatitis B Surface Antigen Negative (Negative); ~HepC Num1 0.06 S/CO (0.00-0.79); ~Hepatitis A Antibody IgM Nonreactive (Nonreactive); ~Hepatitis B Surface Antibody NONREACTIVE (Nonreactive); ~Hepatitis C Antibody Nonreactive (Nonreactive)
== END 2024-12-13 06:05 | disposition home or self-care (01) ==
LOC: HO.HMGCLDS 06:04
PROVIDERS: PCP Nurse Practitioner Family; Visit Provider Nurse Practitioner Family
DX: R74.8 Abnormal levels of other serum enzymes (principal)
CPT/HCPCS: 36415; 86704; 86706; 86709; 86803; 87340

== ENCOUNTER → 2024-12-15 09:19 | Outpatient (BNVA) | payer BC, SELFPAY | PROVIDERS: PCP Nurse Practitioner Family; Visit Provider Nurse Practitioner Family | DX: E11.9 Type 2 diabetes mellitus without complications (principal); I10 Essential (primary) hypertension; E78.5 Hyperlipidemia, unspecified; Z79.84 Long term (current) use of oral hypoglycemic drugs; Z79.899 Other long term (current) drug therapy | CPT/HCPCS: 83036; 96127 ==

== ENCOUNTER 2025-03-23 14:53 | Outpatient (AMB) | payer BC, SELFPAY ==
[2025-03-23 14:56] VITALS: BP 118/62; PULSE 74; BMI 26.9
--- NOTE | 2025-03-23 14:56 | A.OFFVIS_ITS ---
Vital Signs 03/23/25 14:56 Height 5 ft 7 in Weight 171 lb 15.369 oz BMI 26.9 BP 118/62 Blood Pressure Location Lt brachial Position Sitting Pulse 74 Pulse Source Pulse Oximeter Intake Visit Reasons: 6 mth w/ ekg Allergies No Known Allergies [No Known Allergies*] Allergy (Verified 05/31/24 12:35) Medication List - Last Reconciled 03/23/25 by Ramana Fry MD aspirin (Adult Aspirin Regimen) 162 mg (2 x 81 mg) PO DAILY atorvastatin 80 mg PO DAILY blood sugar diagnostic (Freestyle InsuLinx Test Strips) TID testing empagliflozin 25 mg PO DAILY 90 days gabapentin 400 mg PO BID lancets (FreeStyle Lancets) TID testing lisinopril 2.5 mg PO DAILY 90 days metformin 1,000 mg PO ONCE metoprolol succinate ER (Toprol XL) 25 mg PO DAILY HPI Comments Details: Bubba returns for follow-up. He was seen in cardiac evaluation few months back. Has seen Dr. Riojas several years ago. Based on cardiac catheterization 2012, two-vessel CAD with stenting of the distal RCA into PDA as well as angioplasty of ostial LPL branch. From the cardiac standpoint, he has got absolutely no symptoms. 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 No angina or any other cardiac symptoms. Compliant with all his medications. [facility] Medical History Fatty liver Blindness of left eye (~2000) Metal foreign body in eye region (~2000) CAD (coronary artery disease) Hypertension Hyperlipidemia Diabetes Nicotine dependence, cigarettes, uncomplicated Entrapment of left ulnar nerve Surgical History History of heart artery stent Family History Father Esophageal cancer Social History Housing: House Patient Tobacco Use Status: Current everyday Tobacco user Cigarette Packs Per Day: 0.75 Cigarettes Per Day: 15 Years Smoked: (current smoker, onset 16yo, 1ppd x 41yrs, 40pyh) e-Cigarette/Vaping Use: Never Used Second Hand Smoke Exposure: Yes service: No Current occupational status: employed Current occupation: [employer] Current occupational exposures/hazards: Yes Cognitive needs: No Hearing needs: No Vision needs: No Review of Systems Const Denies weakness ENT Denies dizziness Card Denies chest pain, Denies chest pain with activity, Denies syncope, Denies rapid heart rate, Denies pedal edema, Denies edema, Denies leg edema, Denies lightheadedness, Denies palpitations, Denies dyspnea, Denies dyspnea on exertion and Denies orthopnea Resp Denies cough, Denies dyspnea and Denies dyspnea on exertion GI Denies hematochezia and Denies change in stool character Musc Denies abnormal gait, Denies muscle cramps, Denies muscle weakness, Denies num bness, Denies radiating pain into limb and Denies tingling Neuro Denies abnormal gait, Denies dizziness, Denies syncope, Denies numbness, Denies tingling and Denies weakness Endo Denies palpitations Physical Exam Vital Signs: Last Vital Signs Pulse 74 03/23/25 14:56 BP 118/62 03/23/25 14:56 BMI result Body Mass Index 26.9 Const General: comfortable and no acute distress Orientation/consciousness: patient oriented x3 HEENT Other: Unremarkable Head: Yes normal to inspection Neck Neck: Yes normal visual inspection Chest Chest palpation & inspection: normal inspection of the chest Resp Auscultation: clear to auscultation bilaterally Cardio Palpation: normal PMI Heart sounds: S1 normal heart sound present, S2 normal heart sound present, no gallops, no murmurs and no rubs GI Palpation (GI): Soft to palpation Back/Spine/Pelvis Other: unremarkable Skin General skin exam: no rashes or lesions noted Neuro General: patient oriented x3 Extrem General: Yes normal to inspection Psych Mental Status: mental status grossly normal Assessment & Plan Assessment & Plan (1) CAD (coronary artery disease): Comment: (Hx 2 stents in 2013) Code(s): I25.10 - Atherosclerotic heart disease of [place] coronary artery without angina pectoris Category: Medical Plan: Cardiac catheterization reviewed from 2013. Two-vessel CAD. Status post YURI to distal RCA into the PDA branch. Angioplasty of ostial LPL. In the echocardiogram, preserved LVEF at 61%. No wall motion abnormalities. Clinically, no angina. Continue long-term aspirin. Statins. LDL cholesterol 56 mg/dL. (2) Bifascicular block: Code(s): I45.2 - Bifascicular block Category: Medical Plan: To be followed on EKGs. Discussed with the patient about implications of conduction system disease. During last visit, beta-genia dose was cut back. Plan Discussion Notes During the visit, I reviewed the patient's cardiac status, focusing on continual monitoring of his Coronary Artery Disease and conduction disorder, explaining the current status and follow-up plan. We discussed maintaining regular EKGs to monitor cardiac rhythm and electrical pathways due to noted anomalies in past evaluations. Explained the decision to ensure stability via annual EKG checks. The importance of maintaining current functional activity levels was emphasized. Consent was obtained for the outlined follow-up plan. Patient was informed and verbally consented to the use of an ambient scribe for clinic note documentation during this visit. Medications: Changed From gabapentin 400 mg PO TID 30 days 90 caps 3RF To gabapentin 400 mg PO BID Patient Instructions: - Come for an EKG in six months to check heart health. - Monitor your blood sugar as directed. 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 - Return if any changes in symptoms occur, especially in heart rhythm or breathing. - Follow up for diabetes check-ups as scheduled. Coding Level of Care Code Est Pt Level 4 (40336) Diagnoses CAD (coronary artery disease) I25.10 Bifascicular block I45.2
--- OUTSIDE RECORDS SUMMARY | 2025-03-23 14:57 | XMS_ITS ---
Author Organization [facility] Address [address] [place] [address] Care Team Providers Care Director Of Laboratory Operations Name Role Phone Richard Bui Primary Care Provider Unav ailable [place] Decker [phone] REASON FOR VISIT needs dme Encounters Encounter Location Date Provider Diagnosis [address] [address] 12/07/2024 [place] Decker Plan Of Treatment Next Appt Details Provider Name:[place] antonio, 06/07/2025 03:45:00 PM, [address] [place], [phone], Progress Notes * Bubba PINEDA ADOB:[birth year] (59 yo M)Acc No.[id number]:12/07/2024 Patient:?Bubba PINEDA :1965???Age:59 Y???Sex:Male Address:[address] [place] [id number] * true * Date:? Generated for Savannahi sagrario/Gianna/eTransmitting on:?03/23/2025 02:57 PM EDT
--- OUTSIDE RECORDS SUMMARY | 2025-03-23 14:57 | XMS_ITS ---
[facility] Address [address] [place] [address] Care Team Providers Care Doweler Name Role Phone Richard Bui Primary Care Provider Unav Madison Martinez Unavailable [phone] Allergies Allergen (clinical drug ingredient) Drug/Non Drug Allergy documented on EMR Reaction Allergy Type Onset Date Status Adhesive Unknown Allergy Active REASON FOR VISIT At Risk Footcare, Skin problem(s), Foot pain Medications Medication SIG (Take, Route, Frequency, Duration) Notes Start Date End Date Status Atorvastatin Calcium 80 MG Oral for 90 Days Active Aspirin Low Dose 81 MG Oral for 45 Days Active Lisinopril 2.5 MG Oral for 90 Days Active Jardiance 25 MG Oral for 90 Days Active Ciclopirox Olamine 0.77 % 1 application Externally Twice a day for 30 days Active Ammonium Lactate 12 % 1 application to a ffected area Externally Twice a day to dry areas of skin on feet for 30 days 03/08/2025 Active metFORMIN HCl 1000 MG 1 tablet with a me al Orally Once a day for 90 days Active Metoprolol Succinate ER 25 MG 1 tablet Orally Once a day for 90 days Active Gabapentin 300 MG 1 capsule Orally twi ce a day Active Ciclopirox 0.77 % 1 application to aff ected area Externally Twice a day to effected nails for 30 days Active Social History Tobacco Use: Social History Observation Description Date Details (start date - stop date) Current Smoker NA - NA Tobacco use other than smoking: Question Answer Notes Are you an other tobacco user? No Tobacco Control (Standard) Question Answer Notes Tobacco use: Current smoker How often do you smoke cigarettes? Every day How many cigarettes a day do you smoke? 11-20 How soon after you wake up d o you smoke your first cigarette? 6-30 minutes Are you interested in quitting? Thinking about q uitting Vital Signs Height 5ft7in in 03/08/2025 Weight 185 lbs 03/08/2025 BMI 28.97 kg/m2 03/08/2025 Blood pressure systolic 120 mm Hg 03/08/20 25 Blood pressure diastolic 70 mm Hg 025 Encounters Encounter Location Date Provider Diagnosis [facility] [address] [address] 03/08/2025 Madison Decker Type 2 diabetes mellitus with diabetic polyneuropathy E11.42 ; Tailor's bunion of right foot M21.621 ; Tinea unguium B35.1 and Xerosis of skin L85.3 Assessments Encounter Date Diagnosis (ICD Code) Assessment Notes Treatment Notes Treatment Clinical Notes Section Notes 03/08/2025 Type 2 diabetes mellitus with diabetic polyneuropathy (ICD-10 - E11.42) 03/08/2025 Tailor's bunion of right foot (ICD-10 - M21.621) 03/08/2025 Tinea unguium (ICD-10 - B35.1) 03/08/2025 Xerosis of skin (ICD-10 - L85.3) Plan Of Treatment Medication Medication Name Sig Start Date Stop Date Notes Ammonium Lactate 12 % 1 application to a ffected area Externally Twice a day to dry areas of skin on feet for 30 days 03/08/2025 Next Appt Details Follow Up: 3 Months, Reason: Provider Name:Madison antonio, 06/07/2025 03:45:00 PM, [address] [place] [address], [id number], Procedure Notes * Category Sub-Category Detail Notes Debride Nail 6-10 Nail debridement Due to the cl inical pathology outlined in the exam findings, performance of this nail treatment is medically necessary as its management by an unskilled/untrained nonprofessional would put this patients foot and overall health at risk. Therefore, debridement to affected nail(s), as described in exam ( T1, T2, T3, T4, T6, T7, T8, T9), was performed exclusively by the physician of record to reduce/remove overall nail length, girth, thickness, subungual debris, and necrotic tissue, by manual and/or electrical means through the use of a nail nipper and/or dremel-type ice grinder, to a more viable healthy nail plate or bed tissue 6-10 nails in total. Silver nitrate was used for any petechial bleeding as necessary. Definitive antifungal treatment options, both pharmaceutical and surgical, have been reviewed and discussed with the patient. The patient prefers to continue use of a topical antifungal, Ciclopirox gel, the use of intermittent/as needed professional debridement services for their nail condition and understands the need for additional periodic treatments to maintain effectiveness in symptomatic relief - 34688 Keratoma Treatment Parring or Cutting o f Benign Hyperkeratotic Lesion(s) (-57) More than 4 Lesions - Due to the at risk nature of the patients medical condition as documented in the exam findings, performance of this keratoderma treatment is medically necessary as its management by an unskilled/untrained nonprofessional would put this patients foot and overall health at risk. Therefore, the benign hyperkeratotic lesions, ( 8 ) in total, locations as stated and described in the exam ( Medial plantar, IPJ, TA, Medial plantar, IPJ, T5 , SUB MTH (s) , 1 ,5 B/L, Plantar, Heel(s) , B/L), were pared, and/or cut utilizing a sterile 15 blade, tissue nippers, and/or power dremel instrumentation by the physician of record - 10730 Progress Notes * Bubba PINEDA ADOB:[birth year] (59 yo M)Acc No.[id number]:03/08/2025 Progress Note Patient:?DORISBubba MARRERO Provider:?Madison Decker DPM :1965???Age:59 Y???Sex:Male Jorge e:03/08/2025 Address:[address] [place], [place] [id number] Pcp:SADIQ Peterson Subjective: * Chief Complaints: * ???At Risk FootcareSkin prob ladonna(s)Foot pain * HPI: ???At Risk footcare:?Pt States Last PCP Visit:?Date?02/08/2025 ???Skin problems:?Nature:?dryness , scaling.?Location:?B/L .?Duration:?several days.?Course:?worse.?Foot Pain:?Nature:?aching, swelling, tenderness.?Location:?Outside, Bottom, Forefoot, RIGHT.?Duration:?several weeks.?Onset:?work/job, shoes.?Aggravated:?any pressure, standing, walking, shoes, job/occupation.?Treatments:?rest/alter normal daily activity, change in shoes,-new steel toe shoes?ice, medication ( Motrin 600mg).? * ROS:?General/Constitutional:?Nausea?denies.?Vomiting?denies.?Hunger Thirst?denies.?Loss appetite?denies.?Chills?denies.?Fatigue?denies.?Fever?denies.?Night Sweats?denies.?Unexplained weight loss?denies.?Unexplained weight gain?denies.?HEENTM:?Dentures?denies.?Dizziness?denies.?Glasses/contacts?admits.?Retinopathy?den ies.?Blurred/double vision?denies.?TMJ?denies.?Discharge/drainage?denies.?Implants?denies.?Sore throat?denies.?Dental implants?denies.?Hard of hearing ?denies.?Difficulty chewing/swallowing/speaking?denies.?Nose bleeds?denies.?Sore mouth?denies.?Respiratory:?On O xygen?denies.?Pneumonia/pleurisy?denies.?Bronchitis?denies.?Emphysema?denies.?Co ughing?denies.?Cough blood?denies.?Shortness of breath?denies.?Wheezing?denies.?Cardiovascular:?Pacemaker?denies.?MVP?denies.?WPW?denies.?CHF?denies.?Heart attack?admits.?Septal defect?denies.?Rapid beat?denies.?Chest pain ?denies.?Atrial Fib.?denies.?Murmur/Palpitations?denies.?Gastrointestinal:?Hemorrhoids?denies.?Stomach/Abdominal pain?denies.?Dark blood stool?denies.?Irritable bowel ?denies.?Constipation?denies.?Diarrhea?denies.?Hematology:?Swelling?denies.?Clots?denies.?Varicose Veins?denies.?Bruising?denies.?Bleeding problem?denies.?Genitourinary:?Blood urine?denies.?Frequent/Painfu/urination/bladder control?denies.?Kidney stones?denies.?Infection (UTI)?denies.?Nephropathy?denies.?sex trans dis (STD)?denies.?Prostate?denies.?Musculoskeletal:?Hammertoes?denies.?Bunions?denies.?Back Pain?denies.?Muscle Cramps/ Resting?denies.?Muscle cramps / walking?denies.?Generalized aches and pains?admits.?Weakness?denies.?Integ.:?Rousseau?denies.?Scars?denies.?Corns/calluses?admits.?Ingrown nails?admits.?Painful nails?denies.?Open Sores?denies.?Rashes?denies.?Neurologic:?Difficulty sleeping?denies.?Brain disorder?denies.?Numbness?admits.?Balance t rouble?denies.?Confusion?denies.?Fainting/blackouts?denies.?Tingling?admits.?Amilcar mors?denies.? * Medical History:? * Surgical History:?elbow sx 1 12/31/2022 * Hospitalization/Major Diagno stic Procedure:?[facility] heart attack sten 2014 * Family History:?Mother: yan sandoval, diagnosed with Family history of arthritis.?Father: , diagnosed with Other malignant neoplasm of unspecified site.?Maternal Grand Mother: diagnosed with Diabetic - NIDDM.? * Social History:?Tobacco Use:?Tobacco use other than smoking?Are you an other tobacco user??No ?Tobacco Control (Standard)?Tobacco use:?Current smoker ?How often do you smoke cigarettes??Every day ?How many cigarettes a day do you smoke??11-20 ?How soon after you wake up do you smoke your first cigarette??6-30 minutes ?Are you interested in quitting??Thinking about quitting ???Miscellaneous:?Caffeine: yes, frequency:, 1-2 cups per day. ?Children: no. ?Exercise: yes, walking. ?Marital status: . ?Occupation: [employer], Works Full-time. * Medications:?TakingGabapenti n 300 MG Capsule 1 capsule Orally twice a day metFORMIN HCl 1000 MG Tablet 1 tablet with a meal Orally Once a day Metoprolol Succinate ER 25 MG Tablet Extended Release 24 Hour 1 tablet Orally Once a day Lisinopril 2.5 MG Tablet Oral Jardiance 25 MG Tablet Oral Atorvastatin Calcium 80 MG Tablet Oral Aspirin Low Dose 81 MG Tablet Delayed Release Oral Ciclopirox Olamine 0.77 % Cream 1 application Externally Twice a day Ciclopirox 0.77 % Gel 1 application to affected area Externally Twice a day to effected nails Medication List reviewed and reconciled with the patientTaking Gabapentin 300 MG Capsule 1 capsule Orally twice a day Taking metFORMIN HCl 1000 MG Tablet 1 tablet with a meal Orally Once a day Taking Metoprolol Succinate ER 25 MG Tablet Extended Release 24 Hour 1 tablet Orally Once a day Taking Lisinopril 2.5 MG Tablet Oral Taking Jardiance 25 MG Tablet Oral Taking Atorvastatin Calcium 80 MG Tablet Oral Taking Aspirin Low Dose 81 MG Tablet Delayed Release Oral Taking Ciclopirox Olamine 0.77 % Cream 1 application Externally Twice a day Taking Ciclopirox 0.77 % Gel 1 application to affected area Externally Twice a day to effected nails Medication List reviewed and reconciled with the patient * Allergies:?Adhesiveyes[Aller gies Verified] Objective: * Vitals:?Ht: 5ft7in, Wt:185, BMI:28.97, Shoe size: 9.5W, BP:120/70mm Hg, BS: 91, Ht-cm: 170.18 cm, Wt-k.92 kg. * ???Past Orders: ???Lab:HEMOGLOBIN A1C (GLYCO HEMOGLOBIN) (Order Date - 02/08/2025) (Collection Date & Time - 02/08/2025 03:46 PM) ? Value Reference Range ?HEMOGLOBIN A1C % (HH) 7.4 * Examination: ???Ophthalmology Referral: ?DIABETES EYE EXAM?Procedure Performed:?Yes ?Date of Exam Performed?02/08/2025 ?Findings of Diabetic Eye Exam:?no retinopathy?Neurological: ?SENSORY:? Neurological exam demonstrates, reduced light touch sensation, reduced sharp/dull pin prick discrimination , B/L, 5.07 monofilament test performed at plantar aspects of 5 varied sites per foot shows sensation, reduced , B/L.?Nails: ?NAILS are:?Elongated, overgrown, dystrophic, lytic, greater than 3mm thick, discolored and friable with crumbly malodorous subungual debris,?TA, T1, T2, T3, T4, T5, T6, T7, T8, T9.?Dermatologic: ?SKIN FINDINGS:?Skin exam reveals Keratotic lesion(s) located at , Medial plantar, IPJ, TA, Medial plantar, IPJ, T5 , SUB MTH (s) , 1 , 5? B/L, Plantar, Heel(s) , B/L , Skin shows sign(s) of, dryness, scaling, in a stocking fashion, no fissure(s) present, B/L.?Orthopedic: ?MUSCLE STRENGTH:?5/5 all groups in a symmetrical fashion, B/L.?ZARIA'S BUNION:?Prominent, painful, with inflammation, 5th MTH/MPJ, RIGHT.?FOOTWEAR EVALUATION:?good condition.?General Examination: ?GENERAL APPEARANCE:?Reveals a pleasant, alert, well nourished, well- developed, well hydrated individual, who demonstrates proper attention to hygiene/body habitus, and is in no acute distress, Pt serves as own historian for office visit today.?ORIENTED:?person, place, and time.?FOOT EXAM:?Lower Extremity Neurological Exam performed:?Yes ?Visual exam of foot performed:?Yes ?Date?03/08/2025 ?Sensory testing performed:?sensations diminished ?Footwear Evaluation?Footwear Evaluation performed:?Yes??? Assessment: * Assessment: 1.?Type 2 diabetes mellitus with diabetic polyneuropathy - E11.42???2.?Zaria's bunion of right foot - M21.621 (Primary)???Specify :Acute problem, Stable???3.?Tinea unguium - B35.1???Specify :Response to treatment - Unresolved???4.?Xerosis of skin - L85.3???Specify :Acute problem, Uncomplicated (3)??? Plan: * Treatment: * Procedures:?Debride Nail 6-10:?Nail debridement?Due to the clinical pathology outlined in the exam findings, performance of this nail treatment is medically necessary as its management by an unskilled/untrained nonprofessional would put this patients foot and overall health at risk. Therefore, debridement to affected nail(s), as described in exam ( T1, T2, T3, T4, T6, T7, T8, T9), was performed exclusively by the physician of record to reduce/remove overall nail length, girth, thickness, subungual debris, and necrotic tissue, by manual and/or electrical means through the use of a nail nipper and/or dremel-type ice grinder, to a more viable healthy nail plate or bed tissue 6-10 nails in total. Silver nitrate was used for any petechial bleeding as necessary. Definitive antifungal treatment options, both pharmaceutical and surgical, have been reviewed and discussed with the patient. The patient prefersto continue use of a topical antifungal, Ciclopirox gel,the use of intermittent/as needed professional debridement services for their nail condition and understands the need for additional periodic treatments to maintain effectiveness in symptomatic relief - 72126.?Keratoma Treatment:?Parring or Cutting of Benign Hyperkeratotic Lesion(s)?(-57) More than 4 Lesions - Due to the at risk nature of the patients medical condition as documented in the exam findings, performance of this keratoderma treatment is medically necessary as its management by an unskilled/untrained nonprofessional would put this patients foot and overall health at risk. Therefore, the benign hyperkeratotic lesions, ( 8 ) in total, locations as stated and described in the exam (?Medial plantar,?IPJ,?TA,?Medial plantar,?IPJ,?T5?,?SUB MTH (s)?,?1?,5?B/L,?Plantar,?Heel(s)?,?B/L), were pared, and/or cut utilizing a sterile 15 blade, tissue nippers, and/or power dremel instrumentation by the physician of record - 69171.? * Procedure Codes:?96131 DEBRI DE NAIL, 6 OR MORE, Modifiers: XS 54760 TRIM SKIN LESIONS, OVER 4, Modifiers: XS * Preventive Medicine:? ??Counseling:?Tobacco use:?Type of Tobacco Use Cessation Counseling provided?Smoking effects education ?Patient counseled on the dangers of smoking and urged to quit:?03/08/2025 ?Discussion:?-13: Office or other outpatient visit for the evaluation and management of an established patient, which required a medically appropriate history and/or examination and LOW level of DECISION MAKING for: 1 STABLE ACUTE UNCOMPLICATED PROBLEM, 2 OR MORE MINOR PROBLEMS, OR 1 STABLE CHRONIC PROBLEM, THAT POSE(S) A LOW RISK FOR MORBIDITY/MORTALITY. The visit on the day of the encounter encompassed interpreting the data and educating the patient as to the nature of their condition, treatment options available according to their individual PMH, meds, allergies, and overall health/living conditions, as well as any potential risks or complications that may occur from a failure to adhere to, and participate in, the recommended course of therapy. The discussion included a complete verbal, and/or written explanation of the examination results, any x-rays taken, the proposed diagnosis, and outline of the treatment plan. A schedule for future care needs was also explained. The patient verbalized an understanding of the instructions at this time and agreed to be an active participant in their treatment. If the patient should think of any questions or concerns after the visit, I have encouraged the patient to call the office, .?Metatarsalgea:?Discussed other tx options for the patients condition, given recent successful results to treatment, the patient wishes to continue with the present plan for their condition, .?Orthotics:?I explained to the patient the benefits of OT use. I explained that orthoses are medically necessary to decrease the foot pain through proper mechanical control, support of their foot, cushion the forefoot by supplementing the soft tissue, possibly delay of the progression of the Tailor bunion deformity, possibly prevent surgery,, The patient was asked to seriously consider this important treatment option.?Shoe Gear Counseling:?The patient and I reviewed the types of shoes they should be wearing. My recommendation included obtaining a well-fitted shoe with a good supportive, non-foldable nor twistable sole, plenty of toe/room for the forefoot, and proper arch support. Based on todays examination, I recommended the patient look for new shoes, by having their feet professionally measured. We discussed that generally the best time of the day for a shoe fitting is the afternoon. Different shoes types and brands to best match the patients occupation and vocation were discussed. Specific brand selection will be up to the patient, their individual foot condition/deformities, and fit. The patient and I reviewed the standard new shoe break in period by wearing them for a few hours a day while checking for redness or sores as wear time is increased. The patient verbally confirmed to understanding the information discussed.?Xerosis:?The patient was counseled on the diagnosis, potential etiologies, and treatment options for their skin condition. We discussed the risks and benefits of each option from performing no treatment, to utilizing OTC topical skin creams/ointments, to utilizing prescription topical creams/ointments, to utilizing customized compounded topical medications and use of nocturnal occlusion with any/all previously detailed therapies. We discussed the advantages and disadvantages of each possible treatment and importance for adherence to all the recommended therapies for optimum success and avoid potential complications such as open sore/infection/possible hospitalization. We discussed the potential effectiveness of each topical preparation as well as each ones possible side effects and/or patient medication interactions. Patient questions re: use, dosage, successful outcomes, and application consistency were reviewed and the patient verbalized that all answers were clearly understood.? ??Screening/Special Tests:?Fall Risk?Screening:?No falls in the past year ?FALLS: Screening for Future Fall Risk?Have you had any falls with injury in the past year??No * Follow Up:?3 Months * Images: * Sign off status: Completed true * Provider:?Madison Decker DPM Date:? Generated for Sloane zabala/Gianna/Mendel on:?03/23/2025 02:56 PM EDT History and Physical Notes * HPI (History of Present Illness) Category Sub-Category Detail Notes Category Not es Skin problems Nature: dryness , scaling Location: B/L Duration: several days Course: worse At Risk footcare Pt States Last PCP Visit: Date: 5 Foot Pain Nature: aching, swelling, tenderness Location: Outside, Bottom, For efoot, RIGHT Duration: several weeks Onset: work/job, shoes Aggravated: any pressure, standi ng, walking, shoes, job/occupation Treatments: rest/alter normal da humberto activity, change in shoes,-new steel toe shoes ice, medication ( Motrin 600mg) Examination Category Sub-Category Detail Notes Category Not es Neurological SENSORY: Neurological exa m demonstrates, reduced light touch sensation, reduced sharp/dull pin prick discrimination , B/L, 5.07 monofilament test performed at plantar aspects of 5 varied sites per foot shows sensation, reduced , B/L Dermatologic SKIN FINDINGS: Skin exam reveal s Keratotic lesion(s) located at , Medial plantar, IPJ, TA, Medial plantar, IPJ, T5 , SUB MTH (s) , 1 , 5 B/L, Plantar, Heel(s) , B/L , Skin shows sign(s) of, dryness, scaling, in a stocking fashion, no fissure(s) present, B/L Orthopedic FOOTWEAR EVALUATION: good condition TAILOR'S BUNION: Prominent, painful, with inflammation, 5th MTH/MPJ, RIGHT MUSCLE STRENGTH: 5/5 all groups in a symmetrical fashion, B/L General Examination GENERAL APPEARANCE: Reveals a pleasant, alert, well nourished, well-developed, well hydrated individual, who demonstrates proper attention to hygiene/body habitus, and is in no acute distress, Pt serves as own historian for office visit today FOOT EXAM: Lower Extremity Neurological Exa m performed:: Yes Visual exam of foot performed:: Yes Date: 03/08/2025 Sensory testing performed:: sensations d iminished ORIENTED: person, place, and t susie Footwear Evaluation Footwear Evaluation performe d:: Yes Ophthalmology Referral DIABETES EYE EXAM Procedure Perform ed:: Yes ?Date of Exam Performed: 02/08/2025 Findings of Diabetic Eye Exam:: no retin opathy Nails NAILS are: Elongated, overg rown, dystrophic, lytic, greater than 3mm thick, discolored and friable with crumbly malodorous subungual debris, TA, T1, T2, T3, T4, T5, T6, T7, T8, T9
--- OUTSIDE RECORDS SUMMARY | 2025-03-23 14:57 | XMS_ITS ---
[facility] Address [address] [place] [address] Care Team Providers Care Room Maid Name Role Phone Richard Bui Primary Care Provider Unav walt Madison Decker Unavailable [phone] Allergies Allergen (clinical drug ingredient) Drug/Non Drug Allergy documented on EMR Reaction Allergy Type Onset Date Status Adhesive Unknown Allergy Active REASON FOR VISIT At Risk Footcare, Skin problem(s), Foot pain Medications Medication SIG (Take, Route, Frequency, Duration) Notes Start Date End Date Status Aspirin Low Dose 81 MG Oral for 45 Days Active Ciclopirox Olamine 0.77 % 1 application Externally Twice a day for 30 days Active Jardiance 25 MG Oral for 90 Days Active Atorvastatin Calcium 80 MG Oral for 90 Days Active Lisinopril 2.5 MG Oral for 90 Days Active Gabapentin 300 MG 1 capsule Orally twi ce a day Active Ciclopirox 0.77 % 1 application to aff ected area Externally Twice a day to effected nails for 30 days Active Metoprolol Succinate ER 25 MG 1 tablet Orally Once a day for 90 days Active metFORMIN HCl 1000 MG 1 tablet with a me al Orally Once a day for 90 days Active Social History Tobacco Use: Social [...] interested in quitting? Thinking about q uitting AUDIT-C (Standard) Question Answer Notes Did you have a drink containing alcohol in the p ast year? No Points 0 Interpretation Negative Vital Signs Height 5ft 7in in 12/07/2024 Weight 185 lbs 12/07/2024 BMI 28.97 kg/m2 12/07/2024 Blood pressure systolic 120 mm Hg 12/07/19 25 Blood pressure diastolic 70 mm Hg 025 Encounters Encounter Location Date Provider Diagnosis [facility] [place] [address] [place] [address] 12/07/2024 Madison Decker Type 2 diabetes mellitus with diabetic polyneuropathy E11.42 ; Tailor's bunion of right foot M21.621 ; Tinea unguium B35.1 ; Xerosis of skin L85.3 ; Pain in right foot M79.671 ; Pain in right ankle and joints of right foot M25.571 and Bursitis of right foot M77.51 Assessments Encounter Date Diagnosis (ICD Code) Assessment Notes Treatment Notes Treatment Clinical Notes Section Notes 12/07/2024 Type 2 diabetes mellitus with diabetic polyneuropathy (ICD-10 - E11.42) 12/07/2024 Tailor's bunion of right foot (ICD-10 - M21.621) 12/07/2024 Tinea unguium (ICD-10 - B35.1) 12/07/2024 Xerosis of skin (ICD-10 - L85.3) 12/07/2024 Pain in right foot (ICD-10 - M79.671) 12/07/2024 Pain in right ankle and joints of right foot (ICD-10 - M25.571) 12/07/2024 Bursitis of right foot (ICD-10 - M77.51) Plan Of Treatment Pending Test Test Name Order Date X ray : Foot, right 3V 12/07/2024 Next Appt Details Follow Up: 3 Months, Reason: Provider Name:Madison antonio, 06/07/2025 03:45:00 PM, [address] [place] [address], [id number], Procedure Notes * Category Sub-Category Detail Notes Debride Nail 6-10 Nail debridement Due to the cl inical pathology outlined in the exam findings, performance of this nail treatment is medically necessary as its management by an unskilled/untrained nonprofessional would put this patients foot and overall health at risk. Therefore, debridement to affected nail(s), as described in exam ( TA, T1, T2, T3, T4, T5, T6, T7, T8, T9), was performed exclusively by the physician of record to reduce/remove overall nail length, girth, thickness, subungual debris, and necrotic tissue, by manual and/or electrical means through the use of a nail nipper and/or dremel-type tile grinder, to a more viable healthy nail [...] to maintain effectiveness in symptomatic relief - 41281 Keratoma Treatment Parring or Cutting o f [...] instrumentation by the physician of record - 93027 Progress Notes * Bubba PINEDA ADOB:[birth year] (59 yo M)Acc No.[id number]:12/07/2024 Progress Note Patient:?Bubba PINEDA Provider:?Madison Decker DPM :1965???Age:59 Y???Sex:Male Jorge e:12/07/2024 Address:[address] [place] [address] [id number] Pcp:SADIQ Peterson Subjective: * Chief Complaints: * ???At Risk FootcareSkin prob ladonna(s)Foot pain * HPI: ???At Risk footcare:?Pt States Last PCP Visit:?Date?09/06/2024 ???Skin problems:?Nature:?dryness , scaling.?Location:?B/L .?Duration:?several days.?Course:?worse.?Foot Pain:?Nature:?aching, swelling, tenderness.?Location:?Outside, Bottom, Forefoot, RIGHT.?Duration:?several weeks.?Onset:?work/job, shoes.?Course:?, improved some?.?Aggravated:?any pressure, standing, walking, shoes, job/occupation.?Treatments:?rest/alter normal daily activity, change in shoes, ice, medication ( Motrin 600mg).? * ROS:?General/Constitutional:?Nausea?denies, denies.?Vomiting?denies, denies.?Hunger Thirst?denies, denies.?Loss appetite?denies, denies.?Chills?denies, denies.?Fatigue?denies, denies.?Fever?denies, denies.?Night Sweats denies, denies.?Unexplained weight loss?denies, denies.?Unexplained weight gain?denies, denies.?HEENTM:?Dentures?denies, denies.?Dizziness?denies, denies.?Glasses/contacts?admits, admits.?Retinopathy?denies, denies.?Blurred/double vision?denies, denies.?TMJ?denies, denies.?Discharge/drainage?denies, denies.?Implants?denies, denies.?Sore throat?denies, denies.?Dental implants?denies, denies.?Hard of hearing ?denies, denies.?Difficulty chewing/swallowing/speaking?denies, denies.?Nose bleeds?denies, denies.?Sore mouth?denies, denies.?Respiratory:?On Oxygen?denies, denies.?Pneumonia/pleurisy?denies, denies.?Bronchitis?denies, denies.?Emphysema?denies, denies.?Coughing?denies, denies.?Cough blood?denies, denies.?Shortness of breath?denies, denies.?Wheezing?denies, denies.?Cardiovascular:?Pacemaker?denies, denies.?MVP?denies, denies.?WPW?denies, denies.?CHF?denies, denies.?Heart attack?admits, admits.?Septal defect?denies, denies.?Rapid beat?denies, denies.?Chest pain ?denies, denies.?Atrial Fib.?denies, denies.?Murmur/Palpitations?denies, denies.?Gastrointestinal:?Hemorrhoids?denies, denies.?Stomach/Abdominal pain?denies, denies.?Dark blood stool?denies, denies.?Irritable bowel ?denies, denies.?Constipation?denies, denies.?Diarrhea?denies, denies.?Hematology:?Swelling?denies, denies.?Clots?denies, denies.?Varicose Veins?denies, denies.?Bruising?denies, denies.?Bleeding problem?denies, denies.?Genitourinary:?Blood urine?denies, denies.?Frequent/Painfu/urination/bladder control?denies, denies.?Kidney stones?denies, denies.?Infection (UTI)?denies, denies.?Nephropathy?denies, denies.?sex trans dis (STD)?denies, denies.?Prostate?denies, denies.?Musculoskeletal:?Hammertoes?denies, denies.?Bunions?denies, denies.?Back Pain?denies, denies.?Muscle Cramps/ Resting?denies, denies.?Muscle cramps / walking?denies, denies.?Generalized aches and pains?admits, admits.?Weakness?denies, denies.?Integ.:?Rousseau?denies, denies.?Scars?denies, denies.?Corns/calluses?admits, admits.?Ingrown nails?denies, admits.?Painful nails?denies, denies.?Open Sores?denies, denies.?Rashes?denies, denies.?Neurologic:?Difficulty sleeping?denies, denies.?Brain disorder?denies, denies.?Numbness?admits, admits.?Balance trouble?denies, denies.?Confusion?denies, denies.?Fainting/blackouts?denies, denies.?Tingling?admits, admits.?Tremors?denies, denies.? * Medical History:? * Surgical History:?elbow sx [...] ?Are you interested in quitting??Thinking about quitting ???Drugs/Alcohol:?Drugs?Have you used drugs other than those for medical reasons in the past 12 months??No ???Miscellaneous:?Caffeine: yes, frequency:, 1-2 cups per day. ?Children: no. ?Exercise: yes, walking. ?Marital status: . 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 ???Drug/Alcohol:?AUDIT-C (Standard)?Did you have a drink containing alcohol in the past year??No ?Points?0 ?Interpretation?Negative * Medications:?TakingGabapenti n 300 MG Capsule 1 [...] * Allergies:?Adhesiveyes[Aller gies Verified] Objective: * Vitals:?Ht: 5ft 7in, Wt:185, BMI:28.97, Shoe size: 9.5W, BP:120/70mm Hg, BS: not taken, Ht-cm: 170.18 cm, Wt-k.92 kg. * ???Past Orders: ???Lab:HEMOGLOBIN A1C (GLYCO HEMOGLOBIN) (Order Date - 08/10/2024) (Collection Date & Time - 08/10/2024 03:54 PM) ? Value Reference Range ?HEMOGLOBIN A1C % (HH) 6.3 * Examination: ???Ophthalmology Referral: ?DIABETES EYE EXAM?Procedure Performed:?Yes ?Date of Exam Performed?01/09/2024 ?Diabetic Retinopathy Screening:?Yes ?Findings of Diabetic Eye Exam:?no retinopathy?Neurological: ?SENSORY:? [...] B/L.?ZARIA'S BUNION:?Prominent, painful, with inflammation, 5th MTH/MPJ, RIGHT.?FOOTWEAR:?fair condition , shoe gear properties exacerbate patients foot/toe deformity.?General Examination: ?GENERAL APPEARANCE:?Reveals a pleasant, alert, well nourished, well- developed, well hydrated individual, who demonstrates proper attention to hygiene/body habitus, and is in no acute distress, Pt serves as own historian for office visit today.?ORIENTED:?person, place, and time.?FOOT EXAM:?Lower Extremity Neurological Exam performed:?Yes ?Visual exam of foot performed:?Yes ?Date?12/07/2024 ?Sensory testing performed:?sensations diminished ?Footwear Evaluation?Footwear Evaluation performed:?Yes?X-Rays - IMAGING REPORT: ?Clinical Indication(s):? Evaluate for Fracture, Evaluate Biomechanical Deformity.?Views:?3 views of Foot, AP, LAT, LO, RIGHT??Taken by trained?Podiatric Prosthodontist/Owner (?MB).?Findings:?normal bone and soft tissue density consistent for patients age and sex, hypertrophy 5th MTH.?Fracture:?Negative fractures identified.?Neuroma Pain: ?PALPATION:?No interspace pain noted on palpation.? Assessment: * Assessment: 1.?Type 2 diabetes mellitus with diabetic polyneuropathy - E11.42???2.?Zaria's bunion of right foot - M21.621 (Primary)???Specify :Acute problem, Complicated w/ Multiple Tx Options(4)???3.?Tinea unguium - B35.1???Specify :Response to treatment - Unresolved???4.?Xerosis of skin - L85.3???Specify :Acute problem, Uncomplicated (3)???5.?Pain in right foot - M79.671???6.?Pain in right ankle and joints of right foot - M25.571???7.?Bursitis of right foot - M77.51??? Plan: * Treatment: * Procedures:?Debride Nail 6-10:?Nail debridement?Due to the clinical pathology outlined in the exam findings, performance of this nail treatment is medically necessary as its management by an unskilled/untrained nonprofessional would put this patients foot and overall health at risk. Therefore, debridement to affected nail(s), as described in exam ( TA, T1, T2, T3, T4, T5, T6, T7, T8, T9), was performed exclusively by the physician of record to reduce/remove overall nail length, girth, thickness, subungual debris, and necrotic tissue, by manual and/or electrical means through the use of a nail nipper and/or dremel-type tile grinder, to a more viable healthy nail plate or bed tissue 6- 10 nails in total. Silver nitrate was used [...] to maintain effectiveness in symptomatic relief - 02239.?Keratoma Treatment:?Parring or Cutting of Benign Hyperkeratotic Lesion(s)?(-57) [...] instrumentation by the physician of record - 15902.? * Procedure Codes:?12099 DEBRI DE NAIL, 6 OR MORE, Modifiers: XS 15962 X-RAY EXAM OF RIGHT FOOT 3V, Modifiers: 26 , [id number] TRIM SKIN LESIONS, OVER 4, Modifiers: XS * Preventive Medicine:? ??Counseling:?Tobacco use:?Type of Tobacco Use Cessation Counseling provided?Smoking effects education ?Patient counseled on the dangers of smoking and urged to quit:?12/07/2024 ?Discussion:?-14: Office or other outpatient visit for the evaluation and management of an established patient, which required a medically appropriate history and/or examination and MODERATE level of DECISION MAKING for: 1 OR MORE CHRONIC PROBLEM(S) THATS WORSENING, 2 STABLE CHRONIC PROBLEMS, A NEWLY DIAGNOSED PROBLEM WITH UNCERTAIN PROGNOSIS, AN ACUTE COMPLICATED INJURY WITH MULTIPLE TREATMENT OPTIONS, OR AN ACUTE PROBLEM WITH ACCOMPANYING SYSTEMIC SYMPTOMS, THAT POSE(S) A MODERATE RISK OF MORBIDITY. THIS CONDITION MAY ALSO INCLUDE RX DRUG MANAGEMENT, OR A DECISON FOR MINOR SURGERY. The visit on the day of the [...] have encouraged the patient to call the office.?Metatarsalgea:?I explained to the patient the possible etiologies of their Metatarsalgea Foot pain, including foot type/shoegear/activity level/exercise routine and the risks/benefits of all the different treatment options for pain including: No treatment at all, Rest, Ice, NSAIDs(only if well tolerated after meals), New/supportive Shoegear, Strappings and Tapings, Foot/Ankle AFO Bracing, Stretching exercises, Deep Tissue Massage, Arch support/shoe inserts, Custom orthoses, Topical analgesics including Aspercream/Voltaren gel, Physical Therapy, Cortisone injection therapy, EPAT/ESWT. Advantages and disadvantages of each option were discussed and the patients questions re: shoegear, custom vs prefabricated inserts, activity level, PO vs Topical medications (and their respective potential complications/drug interactions/side effects), and consistency in home treatment regimens for optimal success were answered to their verbally confirmed satisfaction.?Orthotics:?I explained to the patient the benefits of OT use. I explained that orthoses are medically necessary to decrease the foot pain through proper mechanical control, support of their foot, cushion the forefoot by supplementing the soft tissue, possibly delay of the progression of the Tailor bunion deformity, possibly prevent surgery, The patient was requested to contact their insurance to determine if orthoses are covered.?P.R.I.C.E.:?The patient was counseled on the use of P.R.I.C.E. and NSAIDS (if well tolerated) to aid in the recovery from their painful condition; pt defers RX for Medrol dose pack.?Shoe Gear Counseling:?The patient and I reviewed the [...] patient verbally confirmed to understanding the information discussed.?X-rays:?Discussed and reviewed the X-rays with the patient. We discussed how the findings relate to the patients symptoms/complaints. Answered any and all questions..?Xerosis:?The patient was counseled on the diagnosis, potential [...] Pt States Last PCP Visit: Date: 4 Foot Pain Nature: aching, swelling, tenderness Location: Outside, Bottom, For efoot, RIGHT Duration: several weeks Onset: work/job, shoes Course: , improved some Aggravated: any pressure, standi ng, walking, shoes, job/occupation Treatments: rest/alter normal da humberto activity, change in shoes, ice, medication ( Motrin 600mg) Examination Category Sub-Category Detail Notes Category Not es Neuroma Pain PALPATION: No interspace pa in noted on palpation Neurological SENSORY: Neurological exa m demonstrates, reduced [...] no fissure(s) present, B/L Orthopedic FOOTWEAR EVALUATION: fair condit ion , shoe gear properties exacerbate patients foot/toe deformity TAILOR'S BUNION: Prominent, painful, with inflammation, 5th [...] Visual exam of foot performed:: Yes Date: 12/07/2024 Sensory testing performed:: sensations d iminished ORIENTED: person, place, and t susie Footwear Evaluation Footwear Evaluation performe d:: Yes Ophthalmology Referral DIABETES EYE EXAM Procedure Perform ed:: Yes ?Date of Exam Performed: 01/09/2024 Diabetic Retinopathy Screening:: Yes Findings of Diabetic Eye Exam:: no retin opathy Nails NAILS are: Elongated, overg rown, dystrophic, lytic, greater than 3mm thick, discolored and friable with crumbly malodorous subungual debris, TA, T1, T2, T3, T4, T5, T6, T7, T8, T9 X-Rays - IMAGING REPORT Findings: normal b one and soft tissue density consistent for patients age and sex, hypertrophy 5th MTH Fracture: Negative fractures i dentified Views: 3 views of Foot, AP, LAT, LO, RIGHT Taken by trained Podiatric Prosthodontist/Owner ( MB) Clinical Indication(s): Evaluate for Fra cture, Evaluate Biomechanical Deformity
--- OUTSIDE RECORDS SUMMARY | 2025-03-23 14:57 | XMS_ITS | Patient Health Record ---
Author Organization [facility] Address [address] [place] [address] Care Team Providers Care Rn Referral Name Role Phone Richard Bui Primary Care Provider Tess FernándezMadison antonio Unavailable [phone] Farhan Mckeon Unavailable [phone] Allergies Allergen (clinical drug ingredient) Drug/Non Drug Allergy documented on EMR Reaction Allergy Type Onset Date Status Adhesive Unknown Allergy Active Results Component Value Reference Range Notes HEMOGLOBIN A1C (GLYCOHEMOGLO BIN) Reviewed date:12/07/2024 03:55:09 PM Interpretation: Performing Lab: Notes/Report: HEMOGLOBIN A1C % (HH) 6.3 HEMOGLOBIN A1C (GLYCOHEMOGLO BIN) Reviewed date:09/14/2024 03:55:34 PM Interpretation: Performing Lab: Notes/Report: TOTAL HEMOGLOBIN (HGBA1C) 6.3 HEMOGLOBIN A1C (GLYCOHEMOGLO BIN) Reviewed date:03/08/2025 03:47:34 PM Interpretation: Performing Lab: Notes/Report: HEMOGLOBIN A1C % (HH) 7.4 Reason For Referral No Information Medications Medication SIG (Take, Route, Frequency, Duration) Notes Start Date End Date Status Ammonium Lactate 12 % 1 application to [...] capsule Orally twi ce a day Active Atorvastatin Calcium 80 MG Oral for 90 Days Active Aspirin Low Dose 81 MG Oral for 45 Days Active Lisinopril 2.5 MG Oral for 90 Days Active Jardiance 25 MG Oral for 90 Days Active Ciclopirox Olamine 0.77 % 1 application Externally Twice a day for 30 days Active Ciclopirox 0.77 % 1 application to aff ected area Externally Twice a day to effected nails for 30 days Active Immunizations Vaccine Route Administration Date Status Comme nts Influenza Unknown 01/13/2024 Refused Social History Tobacco Use: Social History Observation [...] ast year? No Points 0 Interpretation Negative Problems Problem Type SNOMED Code ICD Code Onset Dates Problem Status W/U Status Risk Notes Problem Polyneuropathy due to type 2 diabetes mellitus (845482188) Type 2 diabetes mellitus with diabetic polyneuropathy (E11.42) Active confirmed Vital Signs Blood pressure diastolic 70 mm Hg 03/08/2025 Height 5ft7in in 03/08/2025 Blood pressure systolic 120 mm Hg 03/08/2025 Weight 185 lbs 03/08/2025 BMI 28.97 kg/m2 03/08/2025 Procedures Procedure Date Ordered Date Performed Result Body Sit e 73924-IQKYNRN NAIL, 6 OR MORE 09/14/2024 N/A 16323-HLIL SKIN LESIONS, OVER 4 09/14/2024 N/A Encounters Encounter Location Date Provider Diagnosis [facility] [address] 03/23/2024 Madison Perica Tinea unguium B35.1 and Type 2 diabetes mellitus with polyneuropathy E11.[address] [facility] [address] 07/06/2024 Madison Perica Tinea pedis of both feet B35.3 ; Tinea unguium B35.1 and Type 2 diabetes mellitus with polyneuropathy E11.[address] [address] 09/14/2024 Farhan Mckeon Type 2 diabetes mellitus with diabetic polyneuropathy E11.42 and Tinea unguium B35.[address] [address] 12/07/2024 Madison Decker Type 2 diabetes mellitus with diabetic polyneuropathy E11.42 ; Tailor's bunion of right foot M21.621 ; Tinea unguium B35.1 ; Xerosis of skin L85.3 ; Pain in right foot M79.671 ; Pain in right ankle and joints of right foot M25.571 and Bursitis of right foot M77.[address] [address] 03/08/2025 Madison Decker Type 2 diabetes mellitus with diabetic polyneuropathy E11.42 ; Tailor's bunion of right foot M21.621 ; Tinea unguium B35.1 and Xerosis of skin L85.[address] [address] 06/02/2024 Madison Decker [address] [address] 12/07/2024 Madison Decker Assessments Encounter Date Diagnosis (ICD Code) Assessment Notes Treatment Notes Treatment Clinical Notes Section Notes 03/23/2024 Tinea unguium (ICD-10 - B35.1) 03/23/2024 Type 2 diabetes mellitus with polyneuropathy (ICD-10 - E11.42) 07/06/2024 Tinea pedis of both feet (ICD-10 - B35.3) 09/14/2024 Type 2 diabetes mellitus with diabetic polyneuropathy (ICD-10 - E11.42) 09/14/2024 Tinea unguium (ICD-10 - B35.1) 12/07/2024 Type 2 diabetes mellitus with diabetic polyneuropathy (ICD-10 - E11.42) 12/07/2024 Tailor's bunion of right foot (ICD-10 - M21.621) 03/08/2025 Type 2 diabetes mellitus with diabetic polyneuropathy (ICD-10 - E11.42) 03/08/2025 Tailor's bunion of right foot (ICD-10 - M21.621) 03/08/2025 Tinea unguium (ICD-10 - B35.1) 12/07/2024 Tinea unguium (ICD-10 - B35.1) 07/06/2024 Tinea unguium (ICD-10 - B35.1) 07/06/2024 Type 2 diabetes mellitus with polyneuropathy (ICD-10 - E11.42) 03/08/2025 Xerosis of skin (ICD-10 - L85.3) 12/07/2024 Xerosis of skin (ICD-10 - L85.3) 12/07/2024 Pain in right foot (ICD-10 - M79.671) 12/07/2024 Pain in right ankle and joints of right foot (ICD-10 - M25.571) 12/07/2024 Bursitis of right foot (ICD-10 - M77.51) Plan Of Treatment Pending Test Test Name Order Date X ray : Foot, right 3V 12/07/2024 33880-[id number] NAIL, 6 OR MORE 09/14/2024 17253-[id number] SKIN LESIONS, OVER 4 09/14/20 24 Next Appt Details Provider Name:Madison antonio, 06/07/2025 03:45:00 PM, [address] [place], [address], Insurance Providers Payer Name Payer Address Payer Phone Subscriber Number Group Number Insured Name Patient Relationship to Insured Coverage Start Date Coverage End Date [facility] [address] [place] [address] [id number] Bubba Pulido Self - patient is the insured Medical (General) History Medical History History ICD Code Diabetic Heart disease Numbness Chicken pox Surgical History Surgery Date(Month/Year) elbow sx 10/30/2023 Hospitalization History Reason Date(Month/Year) [facility] heart attack sten 2014
--- OUTSIDE RECORDS SUMMARY | 2025-03-23 14:57 | XMS_ITS | Clinical Summary ---
Author Organization [facility] Address [address] [place] [address] Phone Care Team Providers Care Supervisor Pumping Name Role Phone Richard Campuzano NP Primary Care Provider + [phone] Surgical History Surgery Date Site/Laterality Comments OTHER SURGICAL HISTORY 10/30/2023 PROCEDURE: [place] NEUROPLAST[facility] &/TRANSPOSITION ULNAR NERVE ELBOW; COMMENT: Left ulnar nerve decompression, Dr. Gilbert Medical History Medical History Date Comments Diabetes mellitus type 2, co ntrolled, with complications (CMS/HCC V24, CMS/HCC V28) DX:Diabetes mellitus type 2, controlled, with complications (HCC) Heart attack (CMS/HCC V24, CMS/[facility] V28) DX:Heart attack (HCC) Social History Tobacco Use Types Packs/Day Years Used Date Smoking Tobacco: Every Day Cigarettes Smokeless Tobacco: Never Sex and Gender Information Value Date Recorded Sex Assigned at Not on file Legal Sex Male 10:22 PM EST Gender Identity Not on file Sexual Orientation Not on file Obstetrics History Last Filed Vital Signs Vital Sign Reading Time Taken Comments Blood Pressure - - Pulse - - Temperature - - Respiratory Rate - - Oxygen Saturation - - Inhaled Oxygen Concentration - - Weight 83.9 kg (185 lb) 07/27/2024 9:37 AM EDT Height 170.2 cm (5' 7 ) 07/27/2024 9:37 AM EDT Body Mass Index 28.97 07/27/2024 9:37 AM EDT Plan of Treatment Health Maintenance Due Date Last Done Comments Diabetes: Annual GFR (Glomerular Filtration Rate) 1966 Diabetes: Annual Foot Exam 1976 Diabetes: Annual Retina Eye Exam 1976 Hepatitis B Vaccines (1 of 3 - 19+ 3-dose series) 1985 Zoster Vaccines (1 of 2) 2016 Cholesterol Screening (Lipid Panel) 10/12/2022 Colorectal Cancer Screening: Colonoscopy 10/12/2022 Depression Screening 10/12/2022 HIV Screening 10/12/2022 Hepatitis C Screening 10/12/2022 Social Influencers of Health Screening 10/12/2022 Hypertension/CHF/CAD Annual BMP Blood Test 12/12/2023 COVID-19 Vaccine (4 - 2023-2 5 season) 2024 10/25/2021, 02/08/2021, 01/18/2021 Diabetes: Annual Urine Albumin-Creatinine Ratio (uACR) 09/24/2024 Diabetes: Blood Sugar Contro l Test (HGBA1C) 09/24/2024 Influenza Vaccine (Season Ended) 2025 08/20/2019 DTaP,Tdap,and Td Vaccines (2 - Td or Tdap) 08/20/2029 08/20/2019 Pneumococcal Vaccine: 50+ Years Completed 11/24/2023 Pneumococcal Vaccine: Pediatrics (0 to 5 Years) and At-Risk Patients (6 to 64 Years) Completed 11/24/2023 HIB Vaccines Aged Out No longer eligi ble based on patient's age to complete this topic HPV Vaccines Aged Out No longer eligi ble based on patient's age to complete this topic Hepatitis A Vaccines Aged Out No long er eligible based on patient's age to complete this topic IPV Vaccines Aged Out No longer eligi ble based on patient's age to complete this topic MMR Vaccines Aged Out No longer eligi ble based on patient's age to complete this topic Meningococcal ACWY Vaccine Aged Out N o longer eligible based on patient's age to complete this topic Meningococcal B Vaccine Aged Out No l onger eligible based on patient's age to complete this topic RSV Immunization Patients Under 20 months Aged Out No longer eligible b ased on patient's age to complete this topic Varicella Vaccines Aged Out No longer eligible based on patient's age to complete this topic Insurance [facility] Care Teams Supervisor Pumping Relationship Specialty Start Date End Date Richard Campuzano NP [address] [place], [place] PCP - General 10/01/23
== END 2025-03-23 15:12 | disposition home or self-care (01) ==
PROVIDERS: PCP Nurse Practitioner Family; Visit Provider Internal Medicine
DX: I25.10 Atherosclerotic heart disease of native coronary artery without angina pectoris (principal); I45.2 Bifascicular block
CPT/HCPCS: 99214

== ENCOUNTER 2025-07-05 14:01 | Outpatient (AMB) | payer BC, SELFPAY ==
[2025-07-05 14:03] VITALS: BP 112/68; PULSE 67; TEMP 37.3; O2SAT 95; BMI 27.4
--- NOTE | 2025-07-05 14:03 | MHC.PC.OV ---
Vital Signs 07/05/25 14:03 Height 5 ft 7 in Weight 175 lb BMI 27.4 BP 112/68 Blood Pressure Location Lt brachial Position Sitting Pulse 67 Pulse Source Pulse Oximeter Temp 99.1 F Temp Source Oral Pulse Oximetry (%) 95 Oxygen Delivery Method Room Air Intake Visit Reasons: Annual PE Apparel Merchandiser Required: No Accompanied by: Self / Same As Patient Allergies No Known Allergies (No Known Allergies*) Allergy (Verified 07/05/25 14:10) Medication List - Last Reconciled 07/05/25 by DARIUS Cullen- aspirin (Adult Aspirin Regimen) 162 mg (2 x 81 mg) PO DAILY atorvastatin 80 mg PO DAILY blood sugar diagnostic (Freestyle InsuLinx Test Strips) TID testing empagliflozin (Jardiance) 25 mg PO DAILY gabapentin 400 mg PO TID lancets (FreeStyle Lancets) TID testing lisinopril 2.5 mg PO DAILY metformin 1,000 mg PO BID metoprolol succinate ER 25 mg PO DAILY Tobacco use date assessed: 07/05/25 Dental Screening Dental Screen Date: 07/05/25 Did you have a dental visit in the last 12 months?: No Did you have a dental problem in the last 6 months where you did not have access to dental care?: No Was dental information given to patient?: Patient has dentist HPI Annual PE HPI Details History of Present Illness The patient is a 60-year-old male presenting for diabetes management and a physical examination. The patient has a history of diabetes mellitus, with an A1c level of 6.6% recorded during this visit. He reports adherence to his current medication regimen, which will be continued as is. The patient also reports a history of onychomycosis, for which he has previously seen a news assistant. He is not interested in pursuing oral antifungal treatment at this time. The patient continues to smoke, which has led to scheduling a low-dose CT scan for lung cancer screening. He has been provided with centralized scheduling contact information to resolve previous scheduling conflicts. Preventative care measures include a referral for a colonoscopy, which was delayed due to scheduling conflicts. The patient has been encouraged to complete fasting laboratory tests in the near future. Health Maintenance - Colonoscopy referral due to scheduling conflicts - Low-dose CT scan for lung cancer screening due to tobacco use - Encouraged to complete fasting laboratory tests Social History - Tobacco use: Patient continues to smoke Review of Systems - Cardiovascular: Denies chest pain - Respiratory: Denies dyspnea - Gastrointestinal: Denies abdominal pain, constipation, diarrhea - Neurological: Denies suicidal ideation, homicidal ideation Physical Exam General: Cooperative, healthy appearing, comfortable, no acute distress and well developed Orientation: Patient oriented x3 Limitations: No limitations Head: Normal to inspection Ears: Hearing grossly normal bilaterally Nose: Normal external nose present Face and sinus: Normal facial exam Eyes: Appearance normal, both eyes and all related structures Neck: Normal visual inspection and Yes full ROM Respiratory: Slightly diminished lung sounds but fairly clear, able to speak in complete sentences. Clear to auscultation bilaterally Cardiovascular: Regular rate and rhythm. Normal S1 and S2 GI: Normal to inspection. Soft to palpation and nontender : Testicles without masses/lesions and no hernias appreciated Skin: Onychomycosis noted on feet Neuro: Patient oriented x3, positive sensation with the use of monofilament to feet Extremities: Normal to inspection, feet intact except for onychomycosis noted Results - Labs: A1c level of 6.6% Plan 1. Diabetes Mellitus The patient's diabetes mellitus is currently managed with medication, and his A1c level is 6.6%. He will continue his current medication regimen. 2. Onychomycosis The patient has a history of onychomycosis and has previously consulted a news assistant. He is not interested in oral antifungal treatment at this time. 3. Tobacco Use Disorder The patient continues to smoke and has been advised to schedule a low-dose CT scan for lung cancer screening. Centralized scheduling contact information was provided to resolve scheduling conflicts. 4. Preventative Care: Colonoscopy Scheduling The patient has been re-referred for a colonoscopy due to previous scheduling conflicts. 5. Preventative Care: Low-Dose Ct Scan Scheduling The patient has been advised to schedule a low-dose CT scan for lung cancer screening due to tobacco use. Discussion Notes I discussed with the patient the importance of managing his diabetes and maintaining his current medication regimen, given his A1c level of 6.6%. We also talked about the need for a colonoscopy and a low-dose CT scan for lung cancer screening, providing him with the necessary contact information to resolve scheduling conflicts. Patient Instructions - Continue current diabetes medications as prescribed. - Contact centralized scheduling to arrange a colonoscopy and low-dose CT scan. - Complete fasting laboratory tests as soon as possible. [facility] Medical History Diabetes mellitus with polyneuropathy Tinea unguium Fatty liver Blindness of left eye (~1999) Metal foreign body in eye region (~1999) CAD (coronary artery disease) Hypertension Hyperlipidemia Diabetes Nicotine dependence, cigarettes, uncomplicated Entrapment of left ulnar nerve Surgical History History of heart artery stent Family History Father Esophageal cancer Social History Housing: House Patient Tobacco Use Status: Current everyday Tobacco user Cigarette Packs Per Day: 0.75 Cigarettes Per Day: 15 Years Smoked: (current smoker, onset 16yo, 1ppd x 41yrs, 40pyh) e-Cigarette/Vaping Use: Never Used Second Hand Smoke Exposure: Yes service: No Current occupational status: employed Current occupation: [employer] Current occupational exposures/hazards: Yes Cognitive needs: No Hearing needs: No Vision needs: No Questionnaire Thrive Questionnaire Date Thrive assessed: 12/12/24 I am a: Patient What is your living situation today?: I have a steady place to live Within the past 12 months, did the food you bought not last and you didn't have the money to get more?: Never true Within the past 12 months, did you worry whether your food would run out before you got money to buy more?: Never true Do you have trouble paying for medicines?: No Do you have trouble getting transportation to medical appointments?: No Do you have trouble paying your heating and electricity bill?: No Do you have trouble taking care of your child, family member or friend?: No Do you have trouble with day-to-day activities such as bathing, preparing meals, shopping, managing finances, etc.?: No Are you currently unemployed and looking for a job?: No Are you interested in more education?: No Please select the resources that you would like help with: None Currently or been in a relationship where the following occur: No concerns reported THRIVE Score: 0 SUMAYA-7 AMB Questionnaire SUMAYA-7 Date SUMAYA - 7 assessed: 12/15/24 Source: Developed by Drs. Derick Nicole, Jessica Jacques, Monroe Fleming and colleagues, with an educational renae from [employer]. Physical exam (Primary Care) Vital Signs: Last Vital Signs Temp 99.1 F 07/05/25 14:03 Pulse 67 07/05/25 14:03 BP 112/68 07/05/25 14:03 Pulse Ox 95 07/05/25 14:03 Oxygen Delivery Method Room Air 07/05/25 14:03 BMI result Body Mass Index 27.4 Tobacco/Smoking Status: Tobacco use Status Tobacco use date assessed 07/05/25 07/05/25 14:16 Patient Tobacco Use Status Current everyday Tobacco 07/05/25 14:16 e-Cigarette/Vaping Use Never Used 07/05/25 14:16 Thrive Assessment: Date of Thrive Assessment Date Thrive assessed 12/12/24 07/05/25 14:16 Currently or been in a relationship where the following occur: No concerns reported Results AMB Hemoglobin A1c AMB Hemoglobin A1c 6.6 % Last Edit by Val Joshi MA on 07/05/25 14:22 Results Reviewed Results Reviewed: Laboratory Last Values Hgb A1c (Clinic) 6.6 % (4.0-6.0) H 07/05/25 14:07 Coding Level of Care Code Est Pt Level 3 (06475) Est Pt Prev Care 40-64y(50945) Diagnoses Screening for colon cancer Z12.11 Sleep apnea G47.30 Screening for HIV (human immunodeficiency virus) Z11.4 Type 2 diabetes mellitus without complication, without long-term current use of insulin E11.9 Diabetes mellitus type: type 2 Diabetes mellitus long-term insulin use: without long-term use Diabetes mellitus complication status: without complication Encounter for routine adult physical exam with abnormal findings Z00.01 Assessment & Plan Assessment & Plan (1) Screening for colon cancer: Code(s): Z12.11 - Encounter for screening for malignant neoplasm of colon Category: Medical (2) Sleep apnea: Code(s): G47.30 - Sleep apnea, unspecified Category: Medical (3) Screening for HIV (human immunodeficiency virus): Code(s): Z11.4 - Encounter for screening for human immunodeficiency virus [HIV] Category: Medical (4) Diabetes: Code(s): E11.9 - Type 2 diabetes mellitus without complications Category: Medical Qualifiers: Diabetes mellitus type: type 2 Diabetes mellitus continuous churn buttermaker insulin use: without continuous churn buttermaker use Diabetes mellitus complication status: without complication Qualified Code(s): E11.9 - Type 2 diabetes mellitus without complications (5) Encounter for routine adult physical exam with abnormal findings: Code(s): Z00.01 - Encounter for general adult medical examination with abnormal findings Category: Medical Plan . Orders: Orders RT home sleep study Today G47.30 - Sleep apnea, unspecified AMB Hemoglobin A1c Today Z13.9 - Encounter for screening, unspecified HIV Ab/Ag Today Z11.4 - Encounter for screening for human immunodeficiency virus [HIV] Microalbumin, Random (w Creat) Today E11.9 - Type 2 diabetes mellitus without complications Referrals Gastroenterology Referral Z12.11 - Encounter for screening for malignant neoplasm of colon
--- OUTSIDE RECORDS SUMMARY | 2025-07-05 15:00 | XMS_ITS | Patient Health Record ---
Author Organization [facility] Address [address] [place] [address] Care Team Providers Care Sheet Metal Contractor Name Role Phone Richard Bui Primary Care Provider Tess FernándezSigifredo antonioen Unavailable [phone] Farhan Mckeon Unavailable [phone] Allergies Allergen (clinical drug ingredient) Drug/Non Drug [...] Duration) Notes Start Date End Date Status Lisinopril 2.5 MG Oral; Duration: 90 Days Active Jardiance 25 MG Oral; Duration: 90 Days Active Atorvastatin Calcium 80 MG Oral; Duration: 90 Days Active Gabapentin 300 MG 1 capsule Orally twi ce a day Active metFORMIN HCl 1000 MG 1 tablet with a me al Orally Once a day; Duration: 90 days Active Metoprolol Succinate ER 25 MG 1 tablet Orally Once a day; Duration: 90 days Active Aspirin Low Dose 81 MG Oral; Duration: 45 Days Active Ciclopirox Olamine 0.77 % 1 application Externally Twice a day; Duration: 30 days Active Ciclopirox 0.77 % 1 application to aff ected area Externally Twice a day to effected nails; Duration: 30 days Active Ammonium Lactate 12 % 1 application to a ffected area Externally Twice a day to dry areas of skin on feet; Duration: 30 days 03/08/2025 Active Immunizations Vaccine Route Administration Date Status [...] Polyneuropathy due to type 2 diabetes mellitus (874350551) Type 2 diabetes mellitus with diabetic polyneuropathy (E11.42) Active confirmed Vital Signs Blood pressure diastolic 74 mm Hg 06/07/2025 Height 5ft7in in 06/07/2025 Blood pressure systolic 122 mm Hg 06/07/2025 Weight 176 lbs 06/07/2025 BMI 27.56 kg/m2 06/07/2025 Procedures Procedure Date Ordered Date Performed Result Body Sit e 85353-XFHTPYF NAIL, 6 OR MORE 09/14/2024 N/A 39913-BYTU SKIN LESIONS, OVER 4 09/14/2024 N/A Encounters Encounter Location Date Provider Diagnosis [facility] [address] [address] 07/06/2024 Madison Decker Tinea pedis of both feet B35.3 ; Tinea unguium B35.1 and Type 2 diabetes mellitus with polyneuropathy E11.42 [facility] [address] 09/14/2024 Farhan Mckeon Type 2 diabetes mellitus with diabetic polyneuropathy E11.42 and Tinea unguium B35.[address] [address] 12/07/2024 Madison Brianne Type 2 diabetes mellitus with diabetic polyneuropathy E11.42 ; Tailor's bunion of right foot M21.621 ; Tinea unguium B35.1 ; Xerosis of skin L85.3 ; Pain in right foot M79.671 ; Pain in right ankle and joints of right foot M25.571 and Bursitis of right foot M77.[address] [address] 03/08/2025 Madison Decker Type 2 diabetes mellitus with diabetic polyneuropathy E11.42 ; Tailor's bunion of right foot M21.621 ; Tinea unguium B35.1 and Xerosis of skin L85.[address] [address] 06/07/2025 Madison Decker Type 2 diabetes mellitus with diabetic polyneuropathy E11.42 and Tinea unguium B35.[address] [address] 12/07/2024 Madison Decker Assessments Encounter Date Diagnosis (ICD Code) Assessment Notes Treatment Notes Treatment Clinical Notes Section Notes 07/06/2024 Tinea pedis of both feet (ICD-10 [...] bunion of right foot (ICD-10 - M21.621) 06/07/2025 Type 2 diabetes mellitus with diabetic polyneuropathy (ICD-10 - E11.42) 06/07/2025 Tinea unguium (ICD-10 - B35.1) 03/08/2025 Tinea unguium (ICD-10 - B35.1) 12/07/2024 [...] X ray : Foot, right 3V 12/07/2024 [id number] NAIL, 6 OR MORE 09/14/2024 [id number] SKIN LESIONS, OVER 4 09/14/20 24 Next Appt Details Provider Name:Madison antonio, 09/06/2025 03:45:00 PM, [address] [facility], [place], [address], Insurance Providers Payer Name Payer Address Payer Phone Subscriber Number Group Number Insured Name Patient Relationship to Insured Coverage Start Date Coverage End Date [facility] [address] [place] [address] [phone] [id number] Bubba Pulido Self - patient is the insured Medical (General) History Medical History History ICD Code Diabetic Heart disease Numbness Chicken pox Surgical History Surgery Date(Month/Year) elbow sx 10/30/2023 Hospitalization History Reason Date(Month/Year) [facility] heart attack sten 2014
--- OUTSIDE RECORDS SUMMARY | 2025-07-05 15:00 | XMS_ITS | Clinical Summary ---
Author Organization [facility] Address [address] [place] [address] Phone Care Team Providers Care Molecular Biology Professor Name Role Phone Richard Campuzano NP Primary Care Provider + [phone] Surgical History Surgery Date Site/Laterality Comments OTHER SURGICAL HISTORY 10/30/2023 PROCEDURE: [place] NEUROPLASTY &/TRANSPOSITION ULNAR NERVE ELBOW; COMMENT: Left ulnar nerve decompression, Dr. Gilbert Medical History Medical History Date Comments Diabetes mellitus type 2, co ntrolled, with complications (CMS/HCC V24, CMS/HCC V28) DX:Diabetes mellitus type 2, controlled, with complications (HCC) Heart attack (CMS/HCC V24, CMS/[facility] V28) DX:Heart attack (HCC) Social History Tobacco [...] Panel) 10/12/2022 Colorectal Cancer Screening: Colonoscopy 10/12/2022 HIV Screening 10/12/2022 Hepatitis C Screening 10/12/2022 Social Influencers of Health Screening 10/12/2022 Hypertension/CHF/CAD Annual BMP Blood Test 12/12/2023 COVID-19 Vaccine (4 - 2023-2 5 season) 2024 10/25/2021, 02/08/2021, 01/18/2021 Diabetes: Annual Urine Albumin-Creatinine Ratio (uACR) 09/24/2024 Diabetes: Blood Sugar Contro l Test (HGBA1C) 09/24/2024 Depression Screening 11/10/2024 Influenza Vaccine (#1) 2025 08/20/2019 DTaP,Tdap,and Td Vaccines (2 - Td or Tdap) 08/20/2029 08/20/2019 RSV Immunization Adult Patients (1 - 1-dose 75+ series) 2041 Pneumococcal Vaccine: 50+ Years Completed 11/24/2023 HIB Vaccines Aged Out No [...] patient's age to complete this topic Insurance [facility] Care Teams Molecular Biology Professor Relationship Specialty Start Date End Date Richard Campuzano NP [address] [place], [place] PCP - General 10/01/23
== END 2025-07-05 15:01 | disposition home or self-care (01) ==
LOC: HO.HMCC 14:02
PROVIDERS: PCP Nurse Practitioner Family; Visit Provider Nurse Practitioner Family
DX: Z00.01 Encounter for general adult medical examination with abnormal findings (principal); G47.30 Sleep apnea, unspecified; E11.9 Type 2 diabetes mellitus without complications; Z12.11 Encounter for screening for malignant neoplasm of colon; Z11.4 Encounter for screening for human immunodeficiency virus [HIV]

== ENCOUNTER → 2025-07-05 14:01 | Outpatient (BNVA) | payer BC, SELFPAY | PROVIDERS: PCP Nurse Practitioner Family; Visit Provider Nurse Practitioner Family | DX: Z00.01 Encounter for general adult medical examination with abnormal findings (principal); E11.9 Type 2 diabetes mellitus without complications; G47.30 Sleep apnea, unspecified; F17.210 Nicotine dependence, cigarettes, uncomplicated | CPT/HCPCS: 83036 ==

== ENCOUNTER 2025-09-15 07:32 | Outpatient (REF) | payer BC, SELFPAY ==
--- OUTSIDE RECORDS SUMMARY | 2024-06-02 10:30 | XMS_ITS ---
Author Organization [facility] Address [address] [place] [address] Care Team Providers Care Foot Tender Name Role Phone Richard Bui Primary Care Provider Unav ailable Madison Decker Unavailable [phone] Medications Medication SIG (Take, Route, Frequency, Duration) [...] Active Encounters Encounter Location Date Provider Diagnosis [address] [address] 06/02/2024 Madison Decker Plan Of Treatment Next Appt Details Provider Name:Madison antonio, 12/06/2025 03:45:00 PM, [address] [place] [address], [phone], Progress Notes * Bubba PINEDA ADOB:[birth year] (60 yo M)Acc No.[id number]:06/02/2024 Progress Note Patient: Bubba PUENTE Provider: Ben Decker DPM :1965 A ge:59 Y S ex:Male Date:06/02/2024 Address:[address] [place] [address] Bishop guzman [id number] Pcp:Richard Campuzano, PACU NURSE-KEVIN Subjective: * Chief Complaints: * * HPI: [...] 0 06/02/2024 Generated for Sloane Regalado/Mendel on: 11/15/2024 07:35 AM EST History and Physical Notes * HPI (History of Present Illness) Category Sub-Category Detail Notes Category Not es At Risk footcare Pt States Last PCP Visit: Date: 4
--- OUTSIDE RECORDS SUMMARY | 2024-10-27 04:00 | XMS_ITS ---
Author Organization [facility] Address [address] [place] [address] Care Team Providers Care Profile Saw Setup Operator Name Role Phone Richard Bui Primary Care Provider Unav ailable [place] Decker [phone] REASON FOR VISIT seen sooner Encounters Encounter Location Date Provider Diagnosis [address] [address] 10/27/2024 [place] Decker Plan Of Treatment Next Appt Details Provider Name:[place] antonio, 12/06/2025 03:45:00 PM, [address] [place] [address], [phone], Progress Notes * Bubba PINEDA ADOB:[birth year] (60 yo M)Acc No.[id number]:10/27/2024 Progress Note Patient: Ben Bubba SMITH Provider: Ben Decker DPM :1965 A ge:59 Y S ex:Male Date:10/27/2024 Address:[address] [place], [place] [id number] Pcp:SADIQ Peterson Subjective: * Chief Complaints: * 1 . Seen sooner. * Medical History: Objective: * Vitals: Assessment: Plan: * Treatment: * Images: * The named appointment provid er may or may not be the originator of this progress note, and it is not deemed complete until electronically signed by the appointment provider. Sign off status: Pending * Provider: Ben Decker DPM Date: 1 12/28/2023 Generated for Sloane zabala/Gianna/Mendel on: 11/15/2024 07:35 AM EST
--- NOTE | ~2025-09-15 | CT_ITS ---
CLINICAL HISTORY: F17.210 - Nicotine dependence, cigarettes, uncomplicated CT lung cancer screening (LDCT) Comparison: CT/CA/SR - CT LUNG SCREENING - 04/25/23 15:29 EDT Technique: Axial CT images of the chest using low-dose technique. Referring provider counseled the patient on shared decision-making for LDCT screening. Additional counseling was provided on smoking cessation. Effective radiation dose total: DLP 50.2 mGycm, CTDIvol 1.4 mGy. Findings: Lung: Mild emphysema. Calcified granulomas. 3 mm para fissural nodule of the left lower lobe axial image 71. Coronary artery calcifications: Moderate Limited upper abdomen: Unremarkable Other: None IMPRESSION: LungRADS 2 - Benign Appearance: Continue annual screening with low dose Chest CT in 12 months. ##L2## This document has been electronically signed by: Jeffrey Menjivar MD on 09/15/2025 15:59:25
--- OUTSIDE RECORDS SUMMARY | 2025-09-15 07:35 | XMS_ITS | Patient Health Record ---
Author [facility] Address [address] [place] [address] Care Team Providers Care Assisted Living Coordinator Name Role Phone Richard Bui Primary Care Provider Madison Sr Unavailable [phone] Allergies Allergen (clinical drug ingredient) Drug/Non Drug Allergy documented on EMR Reaction Allergy Type Onset Date Status Adhesive Unknown Allergy Active Results Component Value Reference Range Notes HEMOGLOBIN A1C (GLYCOHEMOGLO BIN) Reviewed date:03/08/2025 03:47:34 PM Interpretation: Performing Lab: Notes/Report: HEMOGLOBIN A1C % (HH) 7.4 Reason For Referral No Information Medications Medication SIG (Take, Route, Frequency, Duration) Notes Start Date End Date Status Ciclopirox 0.77 % 1 application to aff ected area Externally Twice a day to effected nails; Duration: 30 days Active Ciclopirox Olamine 0.77 % 1 application Externally Twice a day; Duration: 30 days Active Ammonium Lactate 12 % 1 application to a ffected area Externally Twice a day to dry areas of skin on feet; Duration: 30 days 03/08/2025 Active metFORMIN HCl 1000 MG 1 tablet with a me al Orally Once a day; Duration: 90 days Active Gabapentin 300 MG 1 capsule Orally twi ce a day Active Lisinopril 2.5 MG Oral; Duration: 90 Days Active Metoprolol Succinate ER 25 MG 1 tablet Orally Once a day; Duration: 90 days Active Atorvastatin Calcium 80 MG Oral; Duration: 90 Days Active Jardiance 25 MG Oral; Duration: 90 Days Active Aspirin Low Dose 81 MG Oral; Duration: 45 Days Active Immunizations Vaccine Route Administration Date Status Comme nts Influenza Unknown 01/13/2024 Refused Influenza Unknown 09/06/2025 Refused Social History Tobacco Use: Social History [...] Polyneuropathy due to type 2 diabetes mellitus (852074654) Type 2 diabetes mellitus with diabetic polyneuropathy (E11.42) Active confirmed Vital Signs Blood pressure diastolic 75 mm Hg 09/06/2025 Height 5ft7in in 09/06/2025 Blood pressure systolic 120 mm Hg 09/06/2025 Weight 176 lbs 09/06/2025 BMI 27.56 kg/m2 09/06/2025 Encounters Encounter Location Date Provider Diagnosis [address] [address] 12/07/2024 Madison Decker Type 2 diabetes mellitus with diabetic polyneuropathy E11.42 ; Tailor's bunion of right foot M21.621 ; Tinea unguium B35.1 ; Xerosis of skin L85.3 ; Pain in right foot M79.671 ; Pain in right ankle and joints of right foot M25.571 and Bursitis of right foot M77.[address] [address] 03/08/2025 Madison Fernándezpaco Type 2 diabetes mellitus with diabetic polyneuropathy E11.42 ; Tailor's bunion of right foot M21.621 ; Tinea unguium B35.1 and Xerosis of skin L85.[address] [address] 06/07/2025 Madison Fernándeza Type 2 diabetes mellitus with diabetic polyneuropathy E11.42 and Tinea unguium B35.1 [facility] [address] [address] 09/06/2025 Madison Decker Type 2 diabetes mellitus with diabetic polyneuropathy E11.42 and Tinea unguium B35.1 [facility] [address] 12/07/2024 Madison Decker Assessments Encounter Date Diagnosis (ICD Code) Assessment Notes Treatment Notes Treatment Clinical Notes Section Notes 12/07/2024 Type 2 diabetes mellitus with diabetic polyneuropathy (ICD-10 - E11.42) 12/07/2024 Tailor's bunion of right foot (ICD-10 - M21.621) 03/08/2025 Tailor's bunion of right foot (ICD-10 - M21.621) 06/07/2025 Type 2 diabetes mellitus with diabetic polyneuropathy (ICD-10 - E11.42) 06/07/2025 Tinea unguium (ICD-10 - B35.1) 09/06/2025 Type 2 diabetes mellitus with diabetic polyneuropathy (ICD-10 - E11.42) 09/06/2025 Tinea unguium (ICD-10 - B35.1) 03/08/2025 Type 2 diabetes mellitus with diabetic polyneuropathy (ICD-10 - E11.42) 03/08/2025 Tinea unguium (ICD-10 - B35.1) 12/07/2024 Tinea unguium (ICD-10 - B35.1) 03/08/2025 Xerosis [...] X ray : Foot, right 3V 12/07/2024 [id number] NAIL, 6 OR MORE 09/14/2024 [id number] SKIN LESIONS, OVER 4 09/14/20 24 Next Appt Details Provider Name:Madison Paco antonio, 12/06/2025 03:45:00 PM, [address] [place], [address], Insurance Providers Payer Name Payer Address Payer Phone Subscriber Number Group Number Insured Name Patient Relationship to Insured Coverage Start Date Coverage End Date [facility] All Others [address] [place] [address] [phone] [id number] Bubba Pulido Self - patient is the insured Medical (General) History Medical History History ICD Code Diabetic Heart disease Numbness Chicken pox Surgical History Surgery Date(Month/Year) elbow sx 10/30/2023 Hospitalization History Reason Date(Month/Year) [facility] heart attack sten 2014
--- OUTSIDE RECORDS SUMMARY | 2025-09-15 07:36 | XMS_ITS | Clinical Summary ---
Author Organization [facility] Address [address] [place] [phone] Phone Care Team Providers Care Destination Sign Repairer Name Role Phone Richard Campuzano NP Primary Care Provider + [phone] Surgical History Surgery Date Site/Laterality Comments OTHER SURGICAL HISTORY 10/30/2023 PROCEDURE: [place] NEUROPLASTY &/TRANSPOSITION ULNAR NERVE ELBOW; COMMENT: Left ulnar nerve decompression, Dr. Gilbert Medical History Medical History Date Comments Diabetes mellitus type 2, co ntrolled, with complications (CMS/HCC V24, CMS/HCC V28) DX:Diabetes mellitus type 2, controlled, with complications (HCC) Heart attack (CMS/HCC V24, CMS/[facility] V28) DX:Heart attack (HCC) Social History Tobacco [...] Health Maintenance Due Date Last Done Comments Colorectal Cancer Screening: Colonoscopy 1966 Diabetes: Annual GFR (Glomerular Filtration Rate) 1966 Diabetes: Annual Foot Exam 1976 Diabetes: Annual Retina Eye Exam 1976 Hepatitis B Vaccines (1 of 3 - 19+ 3-dose series) 1985 Zoster Vaccines (1 of 2) 2016 Cholesterol Screening (Lipid Panel) 10/12/2022 HIV Screening 10/12/2022 Hepatitis C Screening 10/12/2022 Social Influencers of Health Screening 10/12/2022 Hypertension/CHF/CAD Annual BMP Blood Test 12/12/2023 Diabetes: Annual Urine Albumin-Creatinine Ratio (uACR) 09/24/2024 Diabetes: Blood Sugar Contro l Test (HGBA1C) 09/24/2024 Depression Screening 11/10/2024 COVID-19 Vaccine ( - 2024-2 6 season) 2025 10/25/2021, 02/08/2021, 01/18/2021 Influenza Vaccine (#1) 2025 08/20/2019 DTaP,Tdap,and Td [...] patient's age to complete this topic Insurance [facility] Care Teams Destination Sign Repairer Relationship Specialty Start Date End Date Richard Campuzano NP [address] [place], [place] PCP - General 10/01/23
== END 2025-09-15 07:33 | disposition home or self-care (01) ==
LOC: HO.CT 07:32
PROVIDERS: PCP Nurse Practitioner Family; Visit Provider Physician Assistant Medical
DX: Z12.2 Encounter for screening for malignant neoplasm of respiratory organs (principal); F17.210 Nicotine dependence, cigarettes, uncomplicated
CPT/HCPCS: 71271

== ENCOUNTER → 2025-09-15 07:36 | Outpatient (BNV) | payer BC, SELFPAY | PROVIDERS: PCP Nurse Practitioner Family; Visit Provider Nuclear Medicine | DX: F17.210 Nicotine dependence, cigarettes, uncomplicated (principal) | CPT/HCPCS: 71271 ==

== ENCOUNTER → 2025-09-28 15:45 | Outpatient (REF) | payer BC, SELFPAY ==
--- OUTSIDE RECORDS SUMMARY | 2024-06-02 10:30 | XMS_ITS ---
Author Organization [facility] Address [address] [place] [address] Care Team Providers Care Machinery Rigger Name Role Phone Richard Bui Primary Care Provider Unav ailable Madison Decker Unavailable [phone] Medications Medication SIG (Take, Route, Frequency, Duration) [...] Active Encounters Encounter Location Date Provider Diagnosis [address] [address] 06/02/2024 Madison Decker Plan Of Treatment Next Appt Details Provider Name:Madison antonio, 12/06/2025 03:45:00 PM, [address] [place] [address], [phone], Progress Notes * Bubba PINEDA ADOB:[birth year] (60 yo M)Acc No.[id number]:06/02/2024 Progress Note Patient: Bubba PUENTE Provider: Ben Decker DPM :1965 A ge:59 Y S ex:Male Date:06/02/2024 Address:[address] [place] [address] Bishop guzman [id number] Pcp:Richard Campuzano, WINDOW DRESSER-BC Subjective: * Chief Complaints: * * HPI: [...] DPM Date: 0 06/02/2024 Generated for Sloane zabala/Gianna/Mendel on: 11/29/2024 04:20 AM EST History and Physical Notes * HPI (History of Present Illness) Category Sub-Category Detail Notes Category Not es At Risk footcare Pt States Last PCP Visit: Date: 4
--- OUTSIDE RECORDS SUMMARY | 2024-10-27 04:00 | XMS_ITS ---
Author Organization [facility] Address [address] [place] [address] Care Team Providers Care Table Games Shift Manager Name Role Phone Richard Bui Primary Care Provider Unav ailable [place] Decker [phone] REASON FOR VISIT seen sooner Encounters Encounter Location Date Provider Diagnosis [address] [address] 10/27/2024 [place] Decker Plan Of Treatment Next Appt Details Provider Name:[place] antonio, 12/06/2025 03:45:00 PM, [address] [place] [address], [phone], Progress Notes * Bubba PINEDA ADOB:[birth year] (60 yo M)Acc No.[id number]:10/27/2024 Progress Note Patient: Ben Bubba SMITH Provider: Ben Decker DPM :1965 A ge:59 Y S ex:Male Date:10/27/2024 Address:[address] [place], [place] [id number] Pcp:SADIQ Peterson Subjective: * Chief Complaints: * [...] 1 12/28/2023 Generated for Sloane zabala/Gianna/Mendel on: 11/29/2024 04:21 AM EST
--- OUTSIDE RECORDS SUMMARY | 2025-09-29 04:21 | XMS_ITS | Patient Health Record ---
Author Organization [facility] Address [address] [place] [address] Care Team Providers Care Quarrying Specialist Name Role Phone Richard Bui Primary Care Provider Madison Sr Unavailable [phone] Allergies Allergen (clinical drug ingredient) Drug/Non Drug [...] Polyneuropathy due to type 2 diabetes mellitus ([id number]) Type 2 diabetes mellitus with diabetic polyneuropathy (E11.42) Active confirmed Vital Signs Blood pressure diastolic 75 mm Hg 09/06/2025 Height 5ft7in in 09/06/2025 Blood pressure systolic 120 mm Hg 09/06/2025 Weight 176 lbs 09/06/2025 BMI 27.56 kg/m2 09/06/2025 Encounters Encounter Location Date Provider Diagnosis [address] [address] 12/07/2024 Madison Decker Type 2 diabetes mellitus with diabetic polyneuropathy E11.42 ; Tailor's bunion of right foot M21.621 ; Tinea unguium B35.1 ; Xerosis of skin L85.3 ; Pain in right foot M79.671 ; Pain in right ankle and joints of right foot M25.571 and Bursitis of right foot M77.[address] [address] 03/08/2025 Madison Fernándezpaco Type 2 diabetes mellitus with diabetic polyneuropathy E11.42 ; Tailor's bunion of right foot M21.621 ; Tinea unguium B35.1 and Xerosis of skin L85.[address] [address] 06/07/2025 Madison Fernándeza Type 2 diabetes mellitus with diabetic polyneuropathy E11.42 and Tinea unguium B35.1 [facility] [address] [address] 09/06/2025 Madison Decker Type 2 diabetes mellitus with diabetic polyneuropathy E11.42 and Tinea unguium B35.1 [facility] [address] 12/07/2024 Madison Decker Assessments Encounter Date Diagnosis [...] X ray : Foot, right 3V 12/07/2024 [id number] NAIL, 6 OR MORE 09/14/2024 [id number] SKIN LESIONS, OVER 4 09/14/20 24 Next Appt Details Provider Name:Madison Paco antonio, 12/06/2025 03:45:00 PM, [address] [place], [address], Insurance Providers Payer Name Payer Address Payer Phone Subscriber Number Group Number Insured Name Patient Relationship to Insured Coverage Start Date Coverage End Date [facility] [employer] [address] [place] [address] [id number] Bubba Pulido Self - patient is the insured Medical (General) History Medical History History ICD Code Diabetic Heart disease Numbness Chicken pox Surgical History Surgery Date(Month/Year) elbow sx 10/30/2023 Hospitalization History Reason Date(Month/Year) [facility] heart attack sten 2014
== END ==
LOC: HO.SL 15:45
PROVIDERS: PCP Nurse Practitioner Family; Visit Provider Nurse Practitioner Family
DX: G47.30 Sleep apnea, unspecified (principal)
CPT/HCPCS: 95806

== ENCOUNTER → 2025-09-28 16:02 | Outpatient (BNV) | payer BC, SELFPAY | PROVIDERS: PCP Nurse Practitioner Family; Visit Provider Psychiatry & Neurology Neurology | DX: R40.0 Somnolence (principal) | CPT/HCPCS: 95806 ==

== ENCOUNTER 2025-10-04 14:36 | Outpatient (AMB) | payer BC, SELFPAY ==
--- OUTSIDE RECORDS SUMMARY | 2024-06-02 10:30 | XMS_ITS ---
Author Organization [facility] Address [address] [place] [address] Care Team Providers Care Clinical Manager Name Role Phone Richard Bui Primary Care Provider Unav ailable Madison Decker Unavailable [phone] Medications Medication SIG (Take, Route, Frequency, Duration) Notes Start Date End Date Status Jardiance 25 MG Oral; Duration: 90 Days Active Aspirin Low Dose 81 MG Oral; Duration: 45 Days Active Atorvastatin Calcium 80 MG Oral; Duration: 90 Days Active Ciclopirox 0.77 % 1 application to aff ected area Externally Twice a day to effected nails; Duration: 30 days Active Ciclopirox Olamine 0.77 % 1 application Externally Twice a day; Duration: 30 days Active Lisinopril 2.5 MG Oral; Duration: 90 Days Active Metoprolol Succinate ER 50 MG Oral; Duration: 90 Days Acti ve metFORMIN HCl 1000 MG Oral; Duration: 90 Days Active Gabapentin Active Encounters Encounter Location Date Provider Diagnosis [address] [address] 06/02/2024 Madison Decker Plan Of Treatment Next Appt Details Provider Name:Madison antonio, 12/06/2025 03:45:00 PM, [address] [place] [address], [phone], Progress Notes * Bubba PINEDA ADOB:[birth year] (60 yo M)Acc No.[id number]:06/02/2024 Progress Note Patient: Bubba PUENTE Provider: Ben Decker DPM :1965 A ge:59 Y S ex:Male Date:06/02/2024 Address:[address] [place] [address] Bishop guzman [id number] Pcp:Richard Campuzano NP-KEVIN Subjective: * Chief Complaints: * * HPI: A t Risk footcare: Pt States Last PCP Visit: D ate 0 02/25/2024 * Medical History: * Medications: T aking Gabapentin , Taking metFORMIN HCl 1000 MG Tablet Oral , Taking Metoprolol Succinate ER 50 MG Tablet Extended Release 24 Hour Oral , Taking Lisinopril 2.5 MG Tablet Oral , Taking Jardiance 25 MG Tablet Oral , Taking Atorvastatin Calcium 80 MG Tablet Oral , Taking Aspirin Low Dose 81 MG Tablet Delayed Release Oral , Taking Ciclopirox Olamine 0.77 % Cream 1 application Externally Twice a day , Taking Ciclopirox 0.77 % Gel 1 application to affected area Externally Twice a day to effected nails Objective: * Vitals: Assessment: Plan: * Treatment: * Images: * The named appointment provid er may or may not be the originator of this progress note, and it is not deemed complete until electronically signed by the appointment provider. Sign off status: Pending * Provider: Ben Decker DPM Date: 0 06/02/2024 Generated for Sloane Regalado/Mendel on: 12/04/2024 06:27 PM EST History and Physical Notes * HPI (History of Present Illness) Category Sub-Category Detail Notes Category Not es At Risk footcare Pt States Last PCP Visit: Date: 4
--- OUTSIDE RECORDS SUMMARY | 2024-10-27 04:00 | XMS_ITS ---
Author Organization [facility] Address [address] [place] [address] Care Team Providers Care Fabric Inspector Name Role Phone Richard Bui Primary Care Provider Unav ailable [place] Decker [phone] REASON FOR VISIT seen sooner Encounters Encounter Location Date Provider Diagnosis [address] [address] 10/27/2024 [place] Decker Plan Of Treatment Next Appt Details Provider Name:[place] antonio, 12/06/2025 03:45:00 PM, [address] [place] [address], [phone], Progress Notes * Bubba PINEDA ADOB:[birth year] (60 yo M)Acc No.[id number]:10/27/2024 Progress Note Patient: Ben Bubba SMITH Provider: Ben Decker DPM :1965 A ge:59 Y S ex:Male Date:10/27/2024 Address:[address] [place], [place] [phone] Pcp:SADIQ Peterson Subjective: * Chief Complaints: * 1 . Seen sooner. * Medical History: Objective: * Vitals: Assessment: Plan: * Treatment: * Images: * The named appointment provid er may or may not be the originator of this progress note, and it is not deemed complete until electronically signed by the appointment provider. Sign off status: Pending * Provider: Ben Decker, FAITH Date: 1 12/28/2023 Generated for Sloane zabala/Gianna/Mendel on: 12/04/2024 06:28 PM EST
--- NOTE | 2025-10-04 14:41 | A.OFFVIS_ITS ---
Vital Signs 10/04/25 14:44 Height 5 ft 7 in Weight 172 lb 6.424 oz BMI 27.0 BP 110/64 Blood Pressure Location Lt brachial Position Sitting Pulse 72 Pulse Source Monitor Intake Visit Reasons: 6 mth f/up Family Resource Management Professor Required: No Accompanied by: Self / Same As Patient Allergies No Known Allergies (No Known Allergies*) Allergy (Verified 07/05/25 14:10) Medication List - Last Reconciled 10/04/25 by Ramana Fry MD aspirin (Adult Aspirin Regimen) 162 mg (2 x 81 mg) PO DAILY atorvastatin 80 mg PO DAILY blood sugar diagnostic (Freestyle InsuLinx Test Strips) TID testing empagliflozin (Jardiance) 25 mg PO DAILY gabapentin 400 mg PO TID lancets (FreeStyle Lancets) TID testing lisinopril 2.5 mg PO DAILY metformin 1,000 mg PO BID metoprolol succinate ER 25 mg PO DAILY HPI Comments Details: Bubba returns for follow-up regarding coronary disease. Has seen Dr. Riojas several years ago. Based on cardiac catheterization 2012, two-vessel CAD with stenting of the distal RCA into PDA as well as angioplasty of ostial LPL branch. From the cardiac standpoint, he has got absolutely no symptoms. 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 No angina or any other cardiac symptoms. Unfortunately, he smokes. [facility] Medical History Diabetes mellitus with polyneuropathy Tinea unguium Fatty liver Blindness of left eye (~1999) Metal foreign body in eye region (~2000) CAD (coronary artery disease) Hypertension Hyperlipidemia Diabetes Nicotine dependence, cigarettes, uncomplicated Entrapment of left ulnar nerve Surgical History History of heart artery stent Family History Father Esophageal cancer Social History Housing: House Patient Tobacco Use Status: Current everyday Tobacco user Cigarette Packs Per Day: 0.75 Cigarettes Per Day: 15 Years Smoked: (current smoker, onset 16yo, 1ppd x 41yrs, 40pyh) e-Cigarette/Vaping Use: Never Used Second Hand Smoke Exposure: Yes service: No Current occupational status: employed Current occupation: [employer] Current occupational exposures/hazards: Yes Cognitive needs: No Hearing needs: No Vision needs: No Review of Systems Const Denies chills, Denies fatigue, Denies fever(s), Denies frequent falls, Denies weakness, Denies weight gain and Denies weight loss ENT Denies dizziness Card Denies chest pain, Denies leg edema, Denies lightheadedness, Denies palpitations, Denies dyspnea and Denies dyspnea on exertion Resp Denies cough, Denies dyspnea and Denies dyspnea on exertion GI Denies hematochezia Musc Denies abnormal gait, Denies muscle weakness, Denies numbness, Denies radiating pain into limb and Denies tingling Neuro Denies abnormal gait, Denies dizziness, Denies frequent falls, Denies numbness, Denies tingling and Denies weakness Endo Denies fatigue and Denies palpitations Physical Exam Vital Signs: Last Vital Signs Pulse 72 10/04/25 14:44 BP 110/64 10/04/25 14:44 BMI result Body Mass Index 27.0 Const General: comfortable and no acute distress Orientation/consciousness: patient oriented x3 HEENT Other: Unremarkable Head: Yes normal to inspection Neck Neck: Yes normal visual inspection Chest Chest palpation & inspection: normal inspection of the chest Resp Auscultation: clear to auscultation bilaterally Cardio Palpation: normal PMI Heart sounds: S1 normal heart sound present, S2 normal heart sound present, no gallops, no murmurs and no rubs GI Palpation (GI): Soft to palpation Back/Spine/Pelvis Other: unremarkable Skin General skin exam: no rashes or lesions noted Neuro General: patient oriented x3 Extrem General: Yes normal to inspection Psych Mental Status: mental status grossly normal Office Procedures EKG Details: EKG with sinus rhythm, sinus arrhythmia, 72/Min, right bundle-branch block [id number], Complete Assessment & Plan Assessment & Plan (1) CAD (coronary artery disease): Comment: (Hx 2 stents in 2012) Code(s): I25.10 - Atherosclerotic heart disease of torres martinez coronary artery without angina pectoris Category: Medical Plan: Cardiac catheterization reviewed from 2013. Two-vessel CAD. Status post YURI to distal RCA into the PDA branch. Angioplasty of ostial LPL. In the echocardiogram, preserved LVEF at 61%. No wall motion abnormalities. As it has been more than a decade since the last ischemic workup we will plan on exercise stress perfusion imaging study. He agrees with that. Clinically, no angina. Continue long-term aspirin. Statins. LDL cholesterol 56 mg/dL. (2) Bifascicular block: Code(s): I45.2 - Bifascicular block Category: Medical Plan: To be followed on EKGs. During last visit, beta-genia dose was cut back. Plan Discussion Notes I discussed with the patient that while currently asymptomatic with a stable EKG, it has been nearly 12 years since the last comprehensive cardiac check. I recommended a nuclear stress test to evaluate the blood flow to the heart, which involves walking on a treadmill and receiving a nuclear dye injection for imaging. The patient understood and agreed to proceed. We also discussed the prescription for nitroglycerin, and since the patient has not used it for 10 years and is without symptoms, we agreed to discontinue it to reduce unnecessary medication. I advised the patient to continue with annual follow-ups and that we would discuss the management plan further if the stress test results are abnormal. Patient was informed and verbally consented to the use of an ambient scribe for clinic note documentation during this visit. Orders: Orders CA stress test Today I25.10 - Atherosclerotic heart disease of torres martinez coronary artery without angina pectoris, R07.2 - Precordial pain NM cardiolite stress test Today I25.10 - Atherosclerotic heart disease of torres martinez coronary artery without angina pectoris, R07.2 - Precordial pain Patient Instructions: - We will schedule a nuclear stress test to check the blood flow to your heart. - You are encouraged to work on quitting smoking. - Please continue to follow up once a year, or sooner if we find anything on your stress test. Coding Level of Care Code Est Pt Level 4 (79382) Complex visit Add On G2211 Diagnoses CAD (coronary artery disease) I25.10 Bifascicular block I45.2 CPT Codes EKG - CPT: 47083-[id number], Complete ([id number])
[2025-10-04 14:44] VITALS: BP 110/64; PULSE 72; BMI 27.0
--- OUTSIDE RECORDS SUMMARY | 2025-10-04 18:28 | XMS_ITS | Clinical Summary ---
Author Organization [facility] Address [address] [place] [phone] Phone Care Team Providers Care Outside Production Inspector Name Role Phone Richard Campuzano NP Primary Care Provider + [phone] Surgical History Surgery Date Site/Laterality Comments OTHER SURGICAL HISTORY 10/30/2023 PROCEDURE: [place] NEUROPLASTY &/TRANSPOSITION ULNAR NERVE ELBOW; COMMENT: Left ulnar nerve decompression, Dr. Gilbert Medical History Medical History Date Comments Diabetes mellitus type 2, co ntrolled, with complications (CMS/HCC V24, CMS/HCC V28) DX:Diabetes mellitus type 2, controlled, with complications (HCC) Heart attack (CMS/HCC V24, CMS/[facility] V28) DX:Heart attack (HCC) Social History [...] patient's age to complete this topic Insurance [facility] Care Teams Outside Production Inspector Relationship Specialty Start Date End Date Richard Campuzano NP [address] [place], [place] PCP - General 10/01/23
--- OUTSIDE RECORDS SUMMARY | 2025-10-04 18:28 | XMS_ITS | Patient Health Record ---
Author Organization [facility] Address [address] [place] [address] Care Team Providers Care White Sugar Boiler Name Role Phone Richard Bui Primary Care Provider Madison Sr Unavailable [phone] Allergies Allergen (clinical drug ingredient) Drug/Non Drug [...] Polyneuropathy due to type 2 diabetes mellitus (502792649) Type 2 diabetes mellitus with diabetic polyneuropathy (E11.42) Active confirmed Vital Signs Blood pressure diastolic 75 mm Hg 09/06/2025 Height 5ft7in in 09/06/2025 Blood pressure systolic 120 mm Hg 09/06/2025 Weight 176 lbs 09/06/2025 BMI 27.56 kg/m2 09/06/2025 Encounters Encounter Location Date Provider Diagnosis [address] [address] 12/07/2024 Madison Decker Type 2 diabetes mellitus with diabetic polyneuropathy E11.42 ; Tailor's bunion of right foot M21.621 ; Tinea unguium B35.1 ; Xerosis of skin L85.3 ; Pain in right foot M79.671 ; Pain in right ankle and joints of right foot M25.571 and Bursitis of right foot M77.[address] [address] 03/08/2025 Madison Fernándezpaco Type 2 diabetes mellitus with diabetic polyneuropathy E11.42 ; Tailor's bunion of right foot M21.621 ; Tinea unguium B35.1 and Xerosis of skin L85.[address] [address] 06/07/2025 Madison Fernándeza Type 2 diabetes mellitus with diabetic polyneuropathy E11.42 and Tinea unguium B35.1 [facility] [address] [address] 09/06/2025 Madison Decker Type 2 diabetes mellitus with diabetic polyneuropathy E11.42 and Tinea unguium B35.1 [facility] [address] 12/07/2024 Madison Decker Assessments Encounter Date Diagnosis [...] X ray : Foot, right 3V 12/07/2024 [id number] NAIL, 6 OR MORE 09/14/2024 41547-[id number] SKIN LESIONS, OVER 4 09/14/20 24 Next Appt Details Provider Name:Madison Paco antonio, 12/06/2025 03:45:00 PM, [address] [place], [address], Insurance Providers Payer Name Payer Address Payer Phone Subscriber Number Group Number Insured Name Patient Relationship to Insured Coverage Start Date Coverage End Date [facility] All Others [address] [place] [address] [id number] Bubba Pulido Self - patient is the insured Medical (General) History Medical History History ICD Code Diabetic Heart disease Numbness Chicken pox Surgical History Surgery Date(Month/Year) elbow sx 10/30/2023 Hospitalization History Reason Date(Month/Year) [facility] heart attack sten 2014
== END 2025-10-04 15:03 | disposition home or self-care (01) ==
LOC: HO.HCS 14:37
PROVIDERS: PCP Nurse Practitioner Family; Visit Provider Internal Medicine
DX: I25.10 Atherosclerotic heart disease of native coronary artery without angina pectoris (principal); I45.2 Bifascicular block
CPT/HCPCS: 93010; 99214

== ENCOUNTER → 2025-10-04 14:36 | Outpatient (BNVA) | payer BC, SELFPAY | PROVIDERS: PCP Nurse Practitioner Family; Visit Provider Internal Medicine | DX: I25.10 Atherosclerotic heart disease of native coronary artery without angina pectoris (principal); I45.2 Bifascicular block; R07.2 Precordial pain; Z79.82 Long term (current) use of aspirin; Z79.899 Other long term (current) drug therapy | CPT/HCPCS: 93005 ==